=== PATIENT | male | born 1975 | race Hispanic/Latino ===

== ENCOUNTER 2020-03-08 00:47 | Emergency (ER) | payer SELFPAY ==
[~2020-03-08] VITALS: Ht 170.2 cm; Wt 87.0 kg
[2020-03-08] MEDS ORDERED: ATOR40TA75 PO (01:05)
[2020-03-08] MEDS ORDERED: METO1TAB32 PO (01:05)
[2020-03-08] MEDS ORDERED: LISI-542 PO (01:05)
[2020-03-08] MEDS ORDERED: PANT40TA29 PO (01:05)
[2020-03-08] MEDS ORDERED: WARF-23 PO (01:05)
[2020-03-08] MEDS ORDERED: CARV3.12 PO (01:05)
[2020-03-08] MEDS ORDERED: BUME1TAB3 PO (01:05)
[2020-03-08] MEDS ORDERED: MAGN200T10 PO (01:05)
[2020-03-08] MEDS ORDERED: GABAPENTIN 300 MG CAP PO ONE (02:15)
[2020-03-08 03:47] LABS: INR 1.29; PROTHROMBIN TIME 16.4 SECONDS (12.5-14.3)
--- NOTE | 2020-03-08 04:03 | REPVR ---
PROCEDURE INFORMATION: Exam: US Duplex Lower Extremity Veins, Bilateral Exam date and time: 03/08/2020 3:05 AM Age: 44 years old Clinical indication: Pain; Leg, upper; Bilateral; Additional info: B/l leg pain TECHNIQUE: Imaging protocol: Real-time duplex ultrasound of the extremities with 2-D scales scale, color Doppler flow and spectral waveform analysis with image documentation. Complete exam focused on the bilateral lower extremity veins. COMPARISON: No relevant prior studies available. FINDINGS: Limitations: Examination is limited by motion artifact. Patient could not shaking his legs. Right deep veins: Unremarkable. The common femoral, femoral, proximal profunda femoral and popliteal veins are patent without thrombus. Normal Doppler waveforms. Normal compressibility and/or augmentation response. Right superficial veins: Saphenofemoral junction is patent without thrombus. Left deep veins: Unremarkable. The common femoral, femoral, proximal profunda femoral and popliteal veins are patent without thrombus. Normal Doppler waveforms. Normal compressibility and/or augmentation response. Left superficial veins: Saphenofemoral junction is patent without thrombus. Soft tissues: Unremarkable. IMPRESSION: No evidence of deep vein thrombosis. Electronically signed by: Alisha Neely On 03/08/2020 04:03:41 AM
[2020-03-08] MEDS ORDERED: NEUR300C PO (04:24)
[2020-03-08 04:31] VITALS: BP 100/76
== END 2020-03-08 05:12 | disposition home or self-care (01) ==
LOC: M ED 00:47
DX: U07.1 COVID-19 (principal); R06.02 Shortness of breath; E11.40 Type 2 diabetes mellitus with diabetic neuropathy, unspecified; I25.2 Old myocardial infarction; I25.10 Atherosclerotic heart disease of native coronary artery without angina pectoris; I48.91 Unspecified atrial fibrillation; I11.9 Hypertensive heart disease without heart failure; Z79.899 Other long term (current) drug therapy

== ENCOUNTER 2020-03-16 18:28 | Observation (INO) | payer BC, OTHER ==
[~2020-03-16] VITALS: Ht 170.2 cm; Wt 101.8 kg
[~2020-03-16 18:28] MED LIST: ATOR40TA75 PO; BUME1TAB3 PO; CARV3.12 PO; LISI-898 PO; MAGN200T10 PO; METO1TAB32 PO; NEUR300C PO; PANT40TA29 PO; WARF-23 PO
[2020-03-16 19:34] LABS: BASO # 0.1 10^3/uL (0.0-0.2); BASO % 0.7 % (0.0-1.0); EOS # 0.2 10^3/uL (0.0-0.5); EOS % 2.3 % (0.0-3.0); HEMATOCRIT 32.9 % (42.0-52.0); HEMOGLOBIN 9.8 g/dl (13.5-17.5); LYMPH # 1.2 10^3/uL (1.5-5.0); LYMPH % 16.5 % (24.0-44.0); MEAN CORPUSCULAR HGB CONC 29.8 g/dl (32.0-36.5); MEAN CORPUSCULAR VOLUME 73.8 fl (80.0-96.0); MONO # 0.9 10^3/uL (0.0-0.8); MONO % 12.5 % (0.0-5.0); NEUTROPHILS # 4.8 10^3/uL (1.5-8.5); NEUTROPHILS % 67.7 % (36.0-66.0); PLATELET COUNT, AUTOMATED 353 10^3/uL (150-450); RED BLOOD COUNT 4.46 10^6/uL (4.30-6.10)
--- NOTE | 2020-03-16 19:47 | REPVR ---
PROCEDURE INFORMATION: Exam: US Duplex Lower Extremity Veins, Bilateral Exam date and time: 03/16/2020 7:42 PM Age: 44 years old Clinical indication: Edema, localized; Lower extremity, bilateral; Additional info: Edema R/O dvt TECHNIQUE: Imaging protocol: Real-time duplex ultrasound of the extremities with 2-D scales scale, color Doppler flow and spectral waveform analysis with image documentation. Complete exam focused on the bilateral lower extremity veins. COMPARISON: US Duplex, Ext LOWER veins, bilat 03/08/2020 2:42 AM FINDINGS: Right deep veins: Unremarkable. The common femoral, femoral, proximal profunda femoral and popliteal veins are patent without thrombus. Normal Doppler waveforms. Normal compressibility and/or augmentation response. Right superficial veins: Saphenofemoral junction is patent without thrombus. Left deep veins: Unremarkable. The common femoral, femoral, proximal profunda femoral and popliteal veins are patent without thrombus. Normal Doppler waveforms. Normal compressibility and/or augmentation response. Left superficial veins: Saphenofemoral junction is patent without thrombus. Soft tissues: Bilateral lower leg edema. IMPRESSION: Bilateral lower leg edema. No DVT. Electronically signed by: Sebastien Bond On 03/16/2020 19:47:20 PM
[2020-03-16 19:52] LABS: PROTHROMBIN TIME 50.1 SECONDS (12.5-14.3)
[2020-03-16 19:53] LABS: PARTIAL THROMBOPLASTIN TIME 54.9 SECONDS (24.2-38.5)
[2020-03-16 20:05] LABS: INR 5.34
--- NOTE | 2020-03-16 20:05 | REP ---
INDICATION: SOB COMPARISON: None. TECHNIQUE: PA/Lateral FINDINGS: No infiltrate is seen in either lung. On the lateral view, along the posterior aspect of the cardiac silhouette, is a nodular density measuring about 3 cm in diameter. Although this may represent superimposed vascular structures a nodule cannot be excluded. The heart is at the upper limits of normal in size. The mediastinal silhouette is otherwise unremarkable. There is mild elevation of the right christopher diaphragm. There are mild degenerative changes of the spine. IMPRESSION: On the lateral view, along the posterior aspect of the cardiac silhouette, a 3 cm nodular density could represent superimposed vascular structures. However a pulmonary nodule or adenopathy cannot be excluded. Recommend CT of chest with contrast. <Electronically signed by Chepe Ramirez > 03/16/202000
[2020-03-16 20:11] LABS: ALBUMIN 2.6 GM/DL (3.2-5.2); BILIRUBIN,DIRECT 1.2 MG/DL (0.0-0.2); BILIRUBIN,TOTAL 1.6 MG/DL (0.2-1.0); CALCIUM LEVEL 8.4 MG/DL (8.5-10.1); CK-MB VALUE MASS 2.3 NG/ML (<3.6); CREATININE FOR GFR 2.44 MG/DL (0.70-1.30); FREE T4 1.45 NG/DL (0.76-1.46); MB/CK RELATIVE INDEX 2.56 (< OR =4); POTASSIUM SERUM 5.2 MEQ/L (3.5-5.1); THYROID STIMULATING HORMONE 6.32 uIU/ML (0.358-3.740); TOTAL PROTEIN 7.1 GM/DL (6.4-8.2); TROPONIN I 0.02 NG/ML (< 0.10)
--- NOTE | 2020-03-16 20:34 | ECGEPIP ---
[facility] - ED Test Date: 2020-03-16 Pat Name: HERMILA LIVE Department: Room: - Gender: Male Independent Crop Consultant: mary : 1975 Requested By: MADDISON Godinez Order Number: [id number] Reading MD: Chaparro Leonard Measurements Intervals [place] Rate: 86 P: 53 MN: 158 QRS: 37 QRSD: 84 T: 155 QT: 384 QTc: 462 Interpretive Statements SINUS RHYTHM LOW QRS VOLTAGE IN EXTREMITY LEADS ANTEROSEPTAL MYOCARDIAL INFARCTION, PROBABLY OLD NO PRIORS FOR COMPARISON Electronically Signed on 03-16-2020 20:34:25 EST by Chaparro Leonard
[2020-03-16] MEDS ORDERED: GABA-282 PO (22:09)
[2020-03-16] MEDS ORDERED: MAGN400T3 PO (22:09)
[2020-03-17] MEDS ORDERED: GABAPENTIN 300 MG CAP PO ONE
[2020-03-17 00:58] LABS: HEMOGLOBIN A1c 8.2 %
[2020-03-17] MEDS ORDERED: DEXTROSE 50% 50 ML SYRINGE IV PRN (01:45)
[2020-03-17] MEDS ORDERED: GLUCOSE 4GM CHEW TABLET PO PRN (01:45)
[2020-03-17] MEDS ORDERED: GLUCAGON INJ 1MG VIAL SC PRN (01:45)
[2020-03-17] MEDS ORDERED: NS 1,000 ML IV SCH (02:00)
[2020-03-17] MEDS ORDERED: ACETAMINOPHEN TAB 650MG DOSE (2X325MG) PO PRN (02:15)
[2020-03-17 04:43] VITALS: BP 119/72
--- NOTE | 2020-03-17 04:51 | HPEPDOC ---
General Date of Admission Mar 16, 2020 at 18:29 Date of Service: Mar 17, 2020 Other Providers No local provider Attending Physician: Ronnie Cedillo MD Chief Complaint The patient is a 44-year-old male admitted with a reason for visit of Arf,Chf. Source: Patient Exam Limitations: Other (decreased medical literacy) History of Present Illness Mr. Pena is a 44-year-old man who moved to [place] from [place] about 3 weeks ago. He lives with his daughter and son-in-law on [address]. Unfortunately, he literally brought COVID with him as he was informed by [facility] authorities that a COVID test done on 02/21/20 was positive as he was traveling here. He has subsequently recovered from that. He was seen in our emergency department about a week ago and diagnosed with diabetic neuropathy. He was prescribed gabapentin for this. The gabapentin has helped with his neuropathic pain, but he is still having pain. He typically takes full-strength aspirin to treat his pain. A few days ago he saw a bottle of Advil in [facility] and thought he might try that for his pain as well. Roughly 12 hours before admission he took a dose of Advil. To his knowledge he's never taken this medication before. When he woke about 3 hours later his face and hands were swollen. As he and his family were trying to decide what to do he started to feel a lump in his throat and he decided to come to the emergency department for further evaluation and treatment. In the intervening time since he came to the emergency department the facial swelling and sense of a lump in his throat have essentially resolved. Home Medications Scheduled Atorvastatin Calcium (Atorvastatin Calcium) 40 Mg Tablet, 40 MG PO QHS, (Reported) Bumetanide (Bumetanide) 1 Mg Tablet, 1 MG PO TID, (Reported) Carvedilol (Carvedilol) 3.125 Mg Tablet, 3.125 MG PO BID, (Reported) Gabapentin (Gabapentin) 300 Mg Capsule, 300 MG PO TID, (Reported) Lisinopril (Lisinopril) 5 Mg Tablet, 5 MG PO DAILY, (Reported) Magnesium Oxide (Magnesium Oxide) 400 Mg Tablet, 400 MG PO DAILY, (Reported) Metoprolol Succinate (Metoprolol Succinate) 25 Mg Tab.er.24h, 25 MG PO DAILY, (Reported) Pantoprazole Sodium (Pantoprazole Sodium) 40 Mg Tablet.dr, 40 MG PO DAILY, (Reported) Warfarin Sodium (Warfarin Sodium) 5 Mg Tablet, 5 MG PO BID, (Reported) Allergies Coded Allergies: No Known Allergies (Unverified , 03/08/20) Past Medical History Medical History Coronary artery disease, status post IL (2019) Congestive heart failure, noted after IL Type 2 diabetes "My heart flickers and doesn't pump well" which I presume to be paroxysmal atrial fibrillation History of methamphetamine use, 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 His mother is alive at 61 years of age. She has type 2 diabetes with neuropathy, IL 2, congestive heart failure. He has a brother but doesn't know much about his history. He has 4 sons and 3 daughters all of whom are reported to have no known medical problems Social History * Smoker: quit less than 1 year (previous he smoked 1.5 packs per day 7 years) Alcohol: Denies Drugs: other (remote history of methamphetamine use) Recent Travel/Sick Contacts: Reports: Recent travel (he recently moved here from [place]) He lives in a house on [address] with his daughter. He must go up and down stairs between the bedroom and bathroom. His exercise is primarily going up and down the stairs which he thinks is making him stronger. A-FIB/CHADSVASC A-FIB History Current/History of A-Fib/PAF?: Yes Current PO Anticoag Therapy: Yes Review of Systems Constitutional: Reports: Weakness, Lethargy; Denies: Chills, Fever ENT: Reports: Other Symptoms (sense of a lump in his throat); Denies: Head Aches, Ear Pain Skin: Reports: Other (facial swelling) Pulmonary: Denies: Dyspnea, Cough, Pleuritic Chest Pain Cardiovascular: Denies: Chest Pain, Palpitations Gastrointestinal: Denies: Nausea, Vomiting, Abdominal Pain, Diarrhea, Constipation, Melena, Hematochezia Genitourinary: Denies: Dysuria, Hematuria Hematologic: Denies: Bruising, Bleeding Excessively Endocrine: Denies: Polydipsia, Polyphagia, Polyuria Neurological: Denies: Weakness, Numbness Psych: Reports: Mood Normal Physical Examination General Exam: Positive: Alert, Cooperative, No Acute Distress (laying in his ER stretcher when I entered the room) Eye Exam: Positive: PERRLA, Conjunctiva & lids normal, EOMI ENT Exam: Positive: Atraumatic, Mucous membr. moist/pink, Pharynx Normal, Tongue Midline; Negative: Pharyngeal Edema Neck Exam: Positive: Supple; Negative: Lymphadenopathy Chest Exam: Positive: Clear to auscultation, Normal air movement Heart Exam: Positive: Rate Normal, Regular Rhythm, Normal S1, Normal S2; Negative: Murmurs, Rubs Telemetry: Positive: No significant arrhythmia Abdomen Exam: Positive: Normal bowel sounds, Soft, Other (there is a large well-healing midline scar); Negative: Tenderness, Hepatospenomegaly Extremity Exam: Positive: Edema (trace pitting pretibial edema), Tenderness (he reports some tenderness on palpation over the right lower extremity); Negative: Cyanosis Neuro Exam: Positive: Normal Gait, Normal Speech, Normal Tone Psych Exam: Positive: Mental status NL, Mood NL, Oriented x 3 Vital Signs Vital Signs Date Time Temp Pulse Resp B/P (MAP) Pulse Ox O2 Delivery O2 Flow Rate FiO2 03/17/20 04:00 81 134/75 (94) 99 03/17/20 01:32 96.9 03/16/20 22:15 17 Room Air Laboratory Data Labs 24H Laboratory Tests 2 03/16/20 19:21: Estimated Mean Plasma Glucose 189H, Hemoglobin A1c 8.2 03/16/20 19:22: Immature Granulocyte % (Auto) 0.3, Neutrophils (%) (Auto) 67.7H, Lymphocytes (%) (Auto) 16.5L, Monocytes (%) (Auto) 12.5H, Eosinophils (%) (Auto) 2.3, Basophils (%) (Auto) 0.7, Neutrophils # (Auto) 4.8, Lymphocytes # (Auto) 1.2L, Monocytes # (Auto) 0.9H, Eosinophils # (Auto) 0.2, Basophils # (Auto) 0.1, Nucleated Red Blood Cells % (auto) 0.0, Prothrombin Time 50.1H, Prothromb Time International Ratio 5.34*H, Activated Partial Thromboplast Time 54.9H, Anion Gap 10, Glomerular Filtration Rate 31.0L, Calcium Level 8.4L, Magnesium Level 2.0, Total Bilirubin 1.6H, Direct Bilirubin 1.2H, Aspartate Amino Transf (AST/SGOT) 23, Alanine Aminotransferase (ALT/SGPT) 20, Alkaline Phosphatase 322H, Total Creatine Kinase 90, Creatine Kinase MB 2.3, Creatine Kinase MB Relative Index 2.56, Troponin I 0.02, XF-Odj-D-Type Natriuretic Peptide 6946H, Total Protein 7.1, Albumin 2.6L, Albumin/Globulin Ratio 0.6, Thyroid Stimulating Hormone (TSH) 6.320H, Free Thyroxine 1.45 03/16/20 23:53: Bedside Glucose (Misc Panel) 148H CBC/BMP Laboratory Tests 03/16/20 19:22 Problems (1) Acute renal failure (ARF) Status: Acute Problem Specific Plan: Repeat Labs Problem Text: I think that the combination of Bumex plus the aspirin he typically takes for pain plus Advil was just too much for his kidneys. I don't have a baseline for him, but I doubt his creatinine is usually 2.4. Managing this issue is somewhat complicated because he does have a history of congestive heart failure as well. Have to decide whether I should diurese him to try to increase renal flow by allowing the heart to be more efficient pump, or add fl uids to help the kidney managing insult from nephrotoxic medications. In the end, I decided to do the latter as it seems that the new medications are the thing that is tipped him over the edge, not slowly heading into heart failure. We need to monitor his I's and O's very carefully because I may and made the wrong call, and he needs to be diuresed more aggressively. I'm not certain as to whether we should list Advil as an allergy for him or not. Certainly allergies to ibuprofen do exist and angioedema would be a common manifestation of that allergic reaction. (2) Congestive heart failure (CHF) Status: Chronic Problem Specific Plan: Monitor Clinically Problem Text: I don't know what type of heart failure he has as we don't have any previous records nor an echocardiogram. I ordered an echocardiogram to further clarify this. While he does have an elevated BNP here in the emergency department, I think that the factor driving his admission is actually acute renal failure not congestive heart failure. Because of this I have ordered gentle IV hydration. We will need to monitor his I's and O's very carefully. (3) Elevated bilirubin Problem Text: I'm not certain why he has an elevated bilirubin and significantly elevated alkaline phosphatase without other evidence of transaminitis. This could be as simple as a congenital issue. It could be related to an acute hepatitis from medications or even an acute or chronic infectious hepatitis. At this point in time, I think monitoring his labs to see whether these values improve without additional doses of aspirin or ibuprofen is reasonable. If they do not improve, further evaluation should be pursued. (4) Elevated INR Problem Text: He chronically takes warfarin. It's not entirely clear to me why he is on this, although I think it's for paroxysmal atrial fibrillation. Unfortunately he does not endorse having atrial fibrillation but does say that his "heart flutters and doesn't pump well". He is not in atrial fibrillation in the ER today. Regardless his INR is quite elevated at this point in time and his Coumadin should be held. (5) Anemia Problem Specific Plan: Monitor Clinically, Repeat Labs Problem Text: He is anemic with a hemoglobin of 9.8. His only been a little over a month since he had a ruptured gastric ulcer which had to be urgently operated on. Some the anemia may be related to his recovery from this condition and procedure. It's also possible that he is losing blood because he takes a combination of warfarin and aspirin which would not generally be recommended. I don't think he's been put on aspirin for prophylaxis; I think he takes it on his own for pain control. Regardless both of these medications should be held at present and we will check his stool for occult blood. He denies noting any melena or hematochezia. (6) Paroxysmal atrial fibrillation Problem Text: I'm not certain that he has paroxysmal atrial fibrillation but given the history he explains to me this is a condition that makes the most sense. We'll admit him on telemetry to see whether we note any atrial fibrillation. I did notice that he was on a combination of carvedilol and metoprolol. I do not understand why he is on both of these medications and suspect that one is an error. I held the metoprolol here in the hospital. If his heart rate or blood pressure become elevated we should either increase his carvedilol or consider adding the metoprolol back in. (7) DM type 2 (diabetes mellitus, type 2) Status: Chronic Problem Text: He reports he is diabetic, but doesn't have any diabetic medications as a part of his regimen at present. I did ask them to check a hemog lobin A1c in the emergency department and this confirms that his diabetic and that he is not well controlled. At present we will start Accu-Cheks before meals and at bedtime and use an insulin sliding scale. We may want to start converting some of the sliding scale insulin to basal insulin prior to discharge so he has some diabetic regimen to go home on. Alternatively, we could leave it how it is and that his new PCP decide what he wants to start him on. (8) CAD (coronary artery disease), [place] coronary artery Status: Chronic Problem Text: He has a history of coronary artery disease and reports that he had an IL less than 1 year ago. He denies having any stents in place. He is not having any chest pain at present. We'll continue current regimen, monitor. (9) H/O gastric ulcer Problem Text: He reportedly had rupture of a gastric ulcer that required emergent surgery less than 2 months ago. He seems to be healing well from this. We will need to reinforce to him that taking aspirin or Advil as not a good idea if you have a gastric ulcer. Taking a combination of aspirin and Advil is a very bad idea. Plan / VTE VTE Prophylaxis Ordered?: Yes VTE Exclusion Pharmacological: Other (he takes warfarin, but this is currently held because of the supratherapeutic INR) Plan IVF: Initiate Advanced Directives: Health Care Proxy (HCP) (he identifies his daughter Venice Hernandez as his alternate decision maker if he was unable to make his own medical decisions. He wishes to be FULL code.) Ronnie Cedillo MD Mar 17, 2020 04:51
[2020-03-17 06:35] LABS: HEMATOCRIT 35.2 % (42.0-52.0); HEMOGLOBIN 10.4 g/dl (13.5-17.5); MEAN CORPUSCULAR HGB CONC 29.5 g/dl (32.0-36.5); MEAN CORPUSCULAR VOLUME 74.4 fl (80.0-96.0); PLATELET COUNT, AUTOMATED 381 10^3/uL (150-450); RED BLOOD COUNT 4.73 10^6/uL (4.30-6.10); WHITE BLOOD COUNT 7.5 10^3/uL (4.0-10.0)
[2020-03-17 07:03] LABS: ALBUMIN 2.6 GM/DL (3.2-5.2); BILIRUBIN,TOTAL 1.6 MG/DL (0.2-1.0); CALCIUM LEVEL 8.9 MG/DL (8.5-10.1); CREATININE FOR GFR 2.45 MG/DL (0.70-1.30); GLOMERULAR FILTRATION RATE 30.9 (>60); POTASSIUM SERUM 5.2 MEQ/L (3.5-5.1); TOTAL PROTEIN 7.3 GM/DL (6.4-8.2)
[2020-03-17] MEDS: HumaLOG INSULIN (NovoLOG) PER UNIT SC SCH ×2 (08:28→12:14)
[2020-03-17 08:29] VITALS: BP 122/83
[2020-03-17] MEDS ORDERED: PANTOPRAZOLE 40MG TAB (PROTONIX) PO SCH (09:00)
[2020-03-17] MEDS ORDERED: CARVedilol 3.125 MG TAB PO SCH (09:00)
[2020-03-17] MEDS ORDERED: GABAPENTIN 300 MG CAP PO SCH (09:00)
[2020-03-17] MEDS ORDERED: lisinopriL 5 MG TAB PO SCH (09:00)
[2020-03-17] MEDS ORDERED: MAGNESIUM OXIDE 400MG TAB (MAG-OX) PO SCH (09:00)
[2020-03-17] MEDS ORDERED: **NOTE PATIENT COMMENT** MISC XX SCH (10:15)
--- NOTE | 2020-03-17 12:11 | IPN ---
PROGRESS NOTE DATE: 03/17/2020 Juma is [facility]. I have reviewed his history and physical. We do not have access to any of his outpatient records, which would be very beneficial. He was admitted with some abnormal renal function tests as well as congestive heart failure. We do not know his baseline labs. We are assuming he has acute kidney injury superimposed on some chronic kidney disease, but as far as we know he is at his baseline renal function. We also do not know what his cardiac function is like. His liver functions are mildly affected. We do not know what those are at baseline either. His INR is quite prolonged, so his warfarin is on hold. He has quite a bit of neuropathic pain in his legs. Nursing staff called me to see him for this. When I went to the room, he was sound asleep and was sleeping so soundly he barely woke up for my exam. PHYSICAL EXAMINATION: Blood pressure 122/83, pulse 90, respirations 18, 98% oxygen saturation. He is alert, conversant. No distress. Lungs clear. Heart regular rate and rhythm. Abdomen obese, nontender. No masses. Trace peripheral edema. Decreased sensation to light touch on both feet. Pulse decreased in both feet but palpable. IMPRESSION: 1. Severe neuropathic pain in his legs. He is on gabapentin. He has multiple causes for this, including kidney disease and diabetes. Hemoglobin A1c is 8.2%, showing less than optimal control for his diabetes for a person who is only 44. Medications choice will depend on where his renal function stabilizes. Currently he is on sliding scale with coverage. 2. Diabetes, type 2, with sliding scale coverage. If his renal function improves to the point where he would tolerate other medicines. Metformin and probably a flozin would be the most beneficial. 3. Abnormal kidney function. Question acute kidney injury superimposed on chronic kidney disease. Again, we do not know his baseline. He is cautiously being hydrated. Repeat labs have been ordered for the morning. I ordered a renal ultrasound. 4. Congestive heart failure. He is being cautiously hydrated. Echocardiogram has been ordered. Diuretics are on hold. 5. Atrial fibrillation. His rate is controlled. His INR is excessive, and his warfarin is on hold. Daily INRs have been ordered. 6. Recent severe upper gastrointestinal (GI) bleed from a hemorrhagic gastric ulcer. Daily complete blood counts (CBCs) have been ordered. Continue proton pump inhibitor (PPI) therapy. Avoid nonsteroidal anti-inflammatory drugs (NSAIDs). 7. Coronary artery disease, status post myocardial infarction in 2020. Continue beta jun therapy and statin therapy with atorvastatin 40 mg daily.
[2020-03-17] MEDS ORDERED: HumaLOG INSULIN (NovoLOG) PER UNIT SC SCH (21:00)
[2020-03-17] MEDS ORDERED: ATORVASTATIN 20 MG TAB PO SCH (21:00)
--- NOTE | 2020-03-18 09:13 | DSES ---
DISCHARGE SUMMARY DATE OF ADMISSION: 03/16/2020 DATE OF DISCHARGE: 03/17/2020 The patient left against medical advice. PRINCIPAL DIAGNOSIS: Severe neuropathic pain in legs. SECONDARY DIAGNOSES: 1. Type 2 diabetes poorly controlled. 2. Acute versus chronic kidney disease. 3. Congestive heart failure - ejection fraction not quantitated. 4. Atrial fibrillation. 5. Excessive anticoagulation. 6. History of recent upper gastrointestinal bleed. 7. Coronary artery disease. BRIEF HISTORY: Juma Pena was admitted to [address] [place] [address]. Details from current medical record. He signed out against medical advice. Unfortunately none of the tests I ordered to workup the acute kidney versus chronic kidney disease, abnormal liver function tests or congestive heart failure (echocardiogram) were able to be performed before he left. He does have an appointment to go to the [facility] on 03/20. I have looked through records and he has seen Dr. Anish Baker DO. I called Dr. Baker and we discussed the case. He is aware of the patient's medical conditions, the numerous unanswered questions and the diagnostic testing that unfortunately was not able to be performed. The patient left against medical advice. DISCHARGE MEDICATIONS: Unchanged from admission. He was instructed to not take his Lisinopril or his Warfarin until seen in the office Thursday. His INR can be rechecked in the office on Thursday. Can recheck to see if his renal function has improved to the point where he could restart Ritchie inhibitor therapy. The patient was made aware of the risks of , disability, worsening pain and decreased quality of life for against leaving against medical advice and still undertook that choice.
[2020-03-19 10:45] LABS: FOLATE 11.1 NG/ML
== END 2020-03-17 14:35 | disposition left against medical advice (07) ==
LOC: M ED 18:28 → M ED INP 18:29 → M MSPAV 03-17 04:40
PROVIDERS: ADMIT Family Medicine; ATTEND Family Medicine
DX: N17.9 Acute kidney failure, unspecified (principal); Z53.21 Procedure and treatment not carried out due to patient leaving prior to being seen by health care provider; E11.40 Type 2 diabetes mellitus with diabetic neuropathy, unspecified; I50.9 Heart failure, unspecified; N18.9 Chronic kidney disease, unspecified; I48.91 Unspecified atrial fibrillation; I25.2 Old myocardial infarction; I25.10 Atherosclerotic heart disease of native coronary artery without angina pectoris; Z79.899 Other long term (current) drug therapy; R79.1 Abnormal coagulation profile; Z79.01 Long term (current) use of anticoagulants; Z87.891 Personal history of nicotine dependence; D64.9 Anemia, unspecified

== ENCOUNTER → 2020-03-21 | Outpatient (CLI) | payer BC, OTHER ==
[~2020-03-21] MED LIST changes: +ALDA25TA2 PO; +CEFT1INJ4 IV; +FURO80VL IV; +GABA-282 PO; +MAGN400T3 PO
[2020-03-21 12:02] LABS: BASO % 0.6 % (0.0-1.0); EOS # 0.2 10^3/uL (0.0-0.5); EOS % 3.2 % (0.0-3.0); HEMATOCRIT 33.8 % (42.0-52.0); HEMOGLOBIN 9.9 g/dl (13.5-17.5); LYMPH # 1.2 10^3/uL (1.5-5.0); LYMPH % 18.7 % (24.0-44.0); MEAN CORPUSCULAR HEMOGLOBIN 22.1 pg (27.0-33.0); MEAN CORPUSCULAR HGB CONC 29.3 g/dl (32.0-36.5); MEAN CORPUSCULAR VOLUME 75.6 fl (80.0-96.0); MONO % 16.2 % (0.0-5.0); NEUTROPHILS # 3.8 10^3/uL (1.5-8.5); PLATELET COUNT, AUTOMATED 296 10^3/uL (150-450); RED BLOOD COUNT 4.47 10^6/uL (4.30-6.10)
[2020-03-21 12:02] LABS: APPEARANCE, URINE CLEAR (CLEAR); BACTERIA, URINE AUTO NEGATIVE (NEGATIVE); BILIRUBIN, URINE AUTO NEGATIVE (NEGATIVE); BLOOD, URINE BLOOD NEGATIVE (NEGATIVE); COLOR, URINE YELLOW (YELLOW); GLUCOSE, URINE (UA) AUTO NEGATIVE (NEGATIVE); KETONE, URINE AUTO NEGATIVE (NEGATIVE); LEUKOCYTE ESTERASE, URINE AUTO NEGATIVE (NEGATIVE); NITRITE, URINE AUTO NEGATIVE (NEGATIVE); PROTEIN, URINE AUTO NEGATIVE (NEGATIVE); RBC, URINE AUTO 0 /HPF (0-3); SPECIFIC GRAVITY URINE AUTO 1.009 (1.002-1.035); SQUAMOUS EPITHELIAL CELL UR AU 0 /HPF (0-6); UROBILINOGEN, URINE AUTO 0.2 mg/dL (0.0-2.0); WBC, URINE AUTO 0 /HPF (0-3)
[2020-03-21 12:06] LABS: WHITE BLOOD COUNT 6.2 10^3/uL (4.0-10.0)
[2020-03-21 12:13] LABS: INR 4.99; PROTHROMBIN TIME 47.5 SECONDS (12.5-14.3)
[2020-03-21 12:58] LABS: CREATININE, URINE 24.7 MG/DL; MALB URINE SIEMENS 52.8 MG/L; MAU/CREAT RATIO 213.7 MCG/MG (0.0-30.0)
[2020-03-21 13:14] LABS: ALBUMIN 2.6 GM/DL (3.2-5.2); ALT/SGPT 18 U/L (12-78); BILIRUBIN,TOTAL 1.6 MG/DL (0.2-1.0); BLOOD UREA NITROGEN 29 MG/DL (7-18); CALCIUM LEVEL 8.7 MG/DL (8.5-10.1); CARBON DIOXIDE LEVEL 30 MEQ/L (21-32); CHLORIDE LEVEL 98 MEQ/L (98-107); CREATININE FOR GFR 1.07 MG/DL (0.70-1.30); GLOMERULAR FILTRATION RATE > 60.0 (>60); GLUCOSE, FASTING 261 MG/DL (70-100); NT-PRO BNP 7549 PG/ML (<125); POTASSIUM SERUM 4.3 MEQ/L (3.5-5.1); SODIUM LEVEL 136 MEQ/L (136-145)
[2020-03-22 11:49] LABS: ALBUMIN 2.88 GM/DL (3.29-5.55); ALBUMIN % 41.1 % (55.8-66.1); ALPHA-1-GLOBULIN % 6.6 % (2.9-4.9); ALPHA-1-GLOBULINS 0.46 GM/DL (0.17-0.41); ALPHA-2-GLOBULINS 0.97 GM/DL (0.42-0.99); ALPHA-2-GLOBULINS % 13.9 % (7.1-11.8); BETA-1-GLOBULINS 0.52 GM/DL (0.28-0.60); BETA-1-GLOBULINS % 7.4 % (4.7-7.2); BETA-2-GLOBULINS 0.46 GM/DL (0.19-0.55); BETA-2-GLOBULINS % 6.6 % (3.2-6.5); GAMMA GLOBULIN % 24.4 % (11.1-18.8); GAMMA GLOBULINS 1.71 GM/DL (0.65-1.58)
--- NOTE | 2020-03-23 13:29 | ECHO ---
DATE OF PROCEDURE: 03/21/2020 Age: 44 Gender: Male Height: 67 inches Weight: 230 pounds Body Surface Area: 2.14 m2 PATIENT LOCATION: Outpatient. REFERRING PHYSICIAN: Anish Baker DO. INDICATION: Heart failure. MEASUREMENTS: 2D Measurements: RV 4.8 cm. LV 6.8 cm Septum 1.0 cm Posterior wall 1.0 cm Aortic Root 3.0 cm LA 5.0 cm LVEF 10-20% Doppler Measurements: AV 0.87 m/s LVOT 0.72 m/s MV-E 51, A 106, EA ratio 0.5 E prime medial 3.3, A prime medial 3.4, E prime lateral 7.4 Average E/E prime ratio 9.5/PCWP 13.7 mmHg PV 0.52 m/s Pulmonary artery acceleration time 87 msec RVSP 57 mmHg IVC 3.1 cm COMMENTS: Normal sinus rhythm without intraventricular conduction disturbance. M-mode and 2-dimensional echocardiography was performed with pulse, continuous wave, color flow, and tissue Doppler studies. Prominently dilated left ventricle with normal wall thickness and severe global hypokinesis with virtual akinesis of the apex. Prominently dilated left atrium with current grade 1 LV diastolic dysfunction and normal estimated mean left atrial pressure. Prominently dilated right heart chambers with right ventricular free wall hypokinesis and Doppler evidence of at least moderately severe pulmonary hypertension. Prominently dilated IVC with virtually absent respiratory collapse in keeping with markedly elevated central venous pressure/right heart failure. Normal aortic dimensions. Normal appearing aortic valve structure with adequate cusp separation but premature cusp closure in keeping with reduced forward stroke volume. Trace insufficiency. Normal appearing mitral valvular apparatus with low flow appearance to leaflet excursion but no posterior systolic buckling. At least mild to moderate mitral insufficiency. Normal appearing tricuspid valve with at least moderate to moderately severe tricuspid insufficiency. No apparent intracardiac mass or pericardial effusion. MTDD
== END ==
LOC: M CARPUL 11:00
PROVIDERS: ATTEND Family Medicine
DX: I50.9 Heart failure, unspecified (principal); R79.89 Other specified abnormal findings of blood chemistry; G62.9 Polyneuropathy, unspecified; R79.1 Abnormal coagulation profile

== ENCOUNTER 2020-03-26 23:54 | Inpatient (IN) | payer BC ==
[~2020-03-26] VITALS: Ht 170.2 cm; Wt 105.8 kg
[~2020-03-26 23:54] MED LIST changes: -ALDA25TA2 PO; -CEFT1INJ4 IV; -FURO80VL IV
--- OUTSIDE RECORDS SUMMARY | 2020-03-27 00:03 | CCD ---
Author Author [facility] Organization [facility] Address Unknown Phone Unavailable Support Name Relationship Address Phone ELE LIVE Next Of Kin [address] [place] [place] [address] UE Next Of Kin Unknown Unavailable E[place] [address] ELE LIVE ECON [address] [facility] [place] [address] Unavailable Re-disclosure Warning The records that you are about to access may contain information from federally-assisted alcohol or drug abuse programs. If such information is present, then the following federally mandated warning applies: This information has been disclosed to you from records protected by federal confidentiality rules (42 CFR part 2). The federal rules prohibit you from making any further disclosure of this information unless further disclosure is expressly permitted by the written consent of the person to whom it pertains or as otherwise permitted by 42 CFR part 2. A general authorization for the release of medical or other information is NOT sufficient for this purpose. The Federal rules restrict any use of the information to criminally investigate or prosecute any alcohol or drug abuse patient.The records that you are about to access may contain highly sensitive health information, the redisclosure of which is protected by Article 27-F of the [place] Public Health law. If you continue you may have access to information: Regarding HIV / AIDS; Provided by facilities licensed or operated by the [place] [facility] Office of Mental Health; or Provided by the [facility] Office for People With Developmental Disabilities. If such information is present, then the following [facility] mandated warning applies: This information has been disclosed to you from confidential records which are protected by state law. State law prohibits you from making any further disclosure of this information without the specific written consent of the person to whom it pertains, or as otherwise permitted by law. Any unauthorized further disclosure in violation of state law may result in a fine or custodial sentence or both. A general authorization for the release of medical or other information is NOT sufficient authorization for further disc losure. Encounters Encounter Providers Location Date Indications Data Source(s ) Unknown [address] [facility], [facility] [address] 03/21/2020 12:00:00 AM EST eCW1 ([facility], [facility]) Medications Medication Brand Name Start Date Product Form Dose Route Admi nistrative Instructions Pharmacy Instructions Status Indications Reaction Description Data Source(s) Glucometer UNK 03/20/2020 12:00:00 AM EST active Glucometer eCW1 ([facility]) Blood Glucose Test - Blood Glucose Test - 03/20/2020 12:00:00 AM EST active Blood Glucose Test - eCW1 ([facility]) Lancets - Lancets - 03/20/2020 12:00:00 AM EST act dion Lancets - eCW1 ([facility]) Insurance Providers Payer name Policy type / Coverage type Policy ID Covered libertarian ID Covered libertarian's relationship to mcghee Policy Mcghee Plan Information BCBS [facility] 290/790 [id number] SP [id number] [employer] BC-BS PPO 306 [id number] SP [id number] [facility] 290/790 [id number] SP [id number] BCBS [facility] 290/790 [id number] SP [id number] SELF PAY ONLY [id number] SP [id number] Problems, Conditions, and Diagnoses Code Display Name Description Problem Type Effective Dates Data Source(s) E11.65 465270373 Poorly controlled diabetes mellitus Probl em 03/20/2020 12:00:00 AM EST eCW1 ([facility]) G62.9 49847942 Peripheral polyneuropathy Problem 03/20/2020 12:00:00 AM EST eCW1 ([facility]) I50.9 39368850 Congestive heart melissa lure, unspecified HF chronicity, unspecified heart failure type Problem 03/20/2020 12:00:00 AM EST eCW1 ([facility]) I48.0 029016160 Paroxysmal atrial fibrillation Problem 03/20/2020 12:00:00 AM EST eCW1 ([facility]) G47.00 091054602 Insomnia, unspecified type Problem 12:00:00 AM EST eCW1 ([facility]) Social History Code Duration Value Status Description Data Source(s ) Smoking 03/20/2020 12:00:00 AM EST Never Smoker completed Never S moker eCW1 ([facility]) Patient Treatment Plan of Care Planned Activity Planned Date Details Description Data Source (s) Lancets - 03/20/2020 12:00:00 AM EST e CW1 ([facility]) Blood Glucose Test - 03/20/2020 12:00:00 AM EST eCW1 ([facility]) Glucometer 03/20/2020 12:00:00 AM EST e CW1 ([facility])
--- OUTSIDE RECORDS SUMMARY | 2020-03-27 00:03 | CCD ---
Author [facility] Organization [facility] Address Unknown Phone Unavailable Care Team Providers Care Space Control Agent Name Role Phone Anish Baker Unavailable PROBLEMS Type Condition ICD9-CM Code QKU07-DG Code Onset Dates Condition S tatus W/U Status Risk SNOMED Code Notes Problem Insomnia, unspecified type G47.00 Active confirmed 740729880 Problem Paroxysmal atrial fibrillation I48.0 Active confir med 272513923 Problem Congestive heart failure, un specified HF chronicity, unspecified heart failure type I50.9 Active confirmed 47462066 Problem Peripheral polyneuropathy G62.9 Active confirmed 24032737 Problem Poorly controlled diabetes mellitus E11.65 Acti ve confirmed [id number] ALLERGIES No Known Allergies ENCOUNTERS from 1975 to 2020-03-22 Encounter Location Date Provider Diagnosis [facility] [address] [place] [address] Mar, Anish Baker IMMUNIZATIONS No Information SOCIAL HISTORY Tobacco Use: Social History Observation Description Date Details (start date - stop date) Never Smoker Sex Assigned At : Social History Observation Description Sex Assigned At Unknown Education: Question Answer Notes Level of Education: High School Language: Question Answer Notes Languages spoken: Guamanian Anabaptist: Question Answer Notes Anabaptist 33 None Alcohol Screening: Question Answer Notes Did you have a drink containing alcohol in the past year? No Points 0 Interpretation Negative Tobacco Use: Question Answer Notes Are you a: never smoker REASON FOR REFERRAL No Information VITAL SIGNS No information MEDICATIONS Medication SIG (Take, Route, Frequency, Duration) Notes Start Da te End Date Status Glucometer as directed Daily for 999 days Mar, Active Metoprolol Succinate 25 MG 1 capsule Orally Once a day for 30 day(s) Active Warfarin Sodium 5 MG 1 tablet Orally bid Active Gabapentin Active Magnesium Oxide 400 MG 1 tablet as needed Orally Once a day for 30 da y(s) Not-Taking Atorvastatin Calcium 40 MG 1 tablet Orally Once a day for 30 day(s) Active Pantoprazole Sodium 40 MG 1 tablet Orally Once a day for 30 day(s) Active Blood Glucose Test - as directed In Vitro bid for 90 days Mar, Active Lisinopril 5 MG 1 tablet Orally Once a day for 30 day(s) Active Lancets - as directed bid for 90 days Mar, Active Bumetanide 1 MG as directed Orally A ctive Carvedilol 3.125 MG 1 tablet with food Orally Twice a day for 30 day( s) Active PROCEDURES No Information RESULTS No Results REASON FOR VISIT inr MEDICAL (GENERAL) HISTORY Type Description Date Medical History type 2 DM, poorly controlled Medical History Kidney disease Medical History CHF Medical History Atrial fibrilation Medical History History of upper GI bleed Medical History Coronary artery disease, status post ND, no stents 2019 Medical History Peripheral Neuropathy Surgical History stomach ulcer ruptured, Jan 2020 Surgical History heart catherization 2019 Hospitalization History [facility] face swelling Goals Section No Information Health Concerns No Information MEDICAL EQUIPMENT No Information MENTAL STATUS No Information FUNCTIONAL STATUS No Information ASSESSMENTS No Information PLAN OF TREATMENT Medication Medication Name Sig Start Date Stop Date Glucometer as directed Daily for 999 days Mar, Lancets - as directed bid for 90 days Mar, Blood Glucose Test - as directed In Vitro bid for 90 days Mar Next Appt Details Provider Name:Anish Baker, 2020-03-27 10:00:00 AM, [address] [place], [address], Insurance Providers Payer Name Payer Address Payer Phone Insured Name Patient Relati onship to Insured Coverage Start Date Coverage End Date [facility] BCBS PPO [id number] [address] HERMILA LIVE self
--- NOTE | 2020-03-27 01:31 | REPVR ---
PROCEDURE INFORMATION: Exam: US Scrotum and US Duplex Artery and Vein, Scrotum, Complete Exam date and time: 03/27/2020 1:16 AM Age: 44 years old Clinical indication: Edema; Scrotum pain; Additional info: Swollen testicles TECHNIQUE: Imaging protocol: Real-time ultrasound of the scrotum. Real-time duplex ultrasound scan of the arterial and venous flow of the scrotum with B-mode, color Doppler flow and spectral waveform analysis. Complete exam. Duplex images required to evaluate vascular conditions. COMPARISON: No relevant prior studies available. FINDINGS: Right testicle: 4.7 x 2.7 x 2.6 cm. Normal waveforms. Scattered microcalcifications in the right testicle too scant to meet criteria for microlithiasis. Left testicle: 4.3 x 2.6 x 2.4 cm. Normal waveforms. Scattered microcalcifications in the left testicle too scant to meet criteria for microlithiasis. Epididymides: Normal. Scrotum: Scrotal edema. Trace right and small left hydroceles. IMPRESSION: No evidence of testicular torsion bilaterally. Marked scrotal wall edema. Trace right and small left hydroceles. Electronically signed by: Rigo Jordan On 03/27/2020 01:31:18 AM
[2020-03-27] MEDS ORDERED: FUROSEMIDE 40MG/4ML VIAL (J1940) IV ONE (01:45)
[2020-03-27 02:48] LABS: BASO # 0.1 10^3/uL (0.0-0.2); BASO % 1.1 % (0.0-1.0); EOS # 0.2 10^3/uL (0.0-0.5); EOS % 3.2 % (0.0-3.0); HEMATOCRIT 32.2 % (42.0-52.0); HEMOGLOBIN 9.5 g/dl (13.5-17.5); LYMPH # 1.4 10^3/uL (1.5-5.0); LYMPH % 19.3 % (24.0-44.0); MEAN CORPUSCULAR HEMOGLOBIN 22.3 pg (27.0-33.0); MEAN CORPUSCULAR HGB CONC 29.5 g/dl (32.0-36.5); MEAN CORPUSCULAR VOLUME 75.6 fl (80.0-96.0); MONO % 14.4 % (0.0-8.0); NEUTROPHILS # 4.4 10^3/uL (1.5-8.5); NEUTROPHILS % 61.7 % (36.0-66.0); PLATELET COUNT, AUTOMATED 343 10^3/uL (150-450); RED BLOOD COUNT 4.26 10^6/uL (4.30-6.10); WHITE BLOOD COUNT 7.1 10^3/uL (4.0-10.0)
[2020-03-27 03:21] LABS: ALBUMIN 2.5 GM/DL (3.2-5.2); ALT/SGPT 19 U/L (12-78); BILIRUBIN,DIRECT 1.2 MG/DL (0.0-0.2); BILIRUBIN,TOTAL 2.4 MG/DL (0.2-1.0); BLOOD UREA NITROGEN 20 MG/DL (7-18); CALCIUM LEVEL 8.1 MG/DL (8.5-10.1); CARBON DIOXIDE LEVEL 28 MEQ/L (21-32); CHLORIDE LEVEL 94 MEQ/L (98-107); CK-MB VALUE MASS 1.1 NG/ML (<3.6); CPK CREATINE PHOSPHOKINASE 88 U/L (39-308); CREATININE FOR GFR 0.94 MG/DL (0.70-1.30); GLOMERULAR FILTRATION RATE > 60.0 (>60); GLUCOSE, FASTING 236 MG/DL (70-100); LIPASE 227 U/L (73-393); MB/CK RELATIVE INDEX 1.25 (< OR =4); POTASSIUM SERUM 4.4 MEQ/L (3.5-5.1); SODIUM LEVEL 132 MEQ/L (136-145); TOTAL PROTEIN 7.4 GM/DL (6.4-8.2); TROPONIN I < 0.02 NG/ML (< 0.10)
[2020-03-27 03:27] LABS: RSV AMPLIFICATION NEGATIVE (NEGATIVE)
--- OUTSIDE RECORDS SUMMARY | 2020-03-27 03:46 | CCD ---
Author Author [facility] Organization [facility] Address Unknown Phone Unavailable Support Name Relationship Address Phone ELE [place] Next [place] [address] [place] [address] UE Next Of Kin Unknown Unavailable ELE WALTERS Next Of Kin [address] [place] [address] [place] [address] [place] [address] Unavailable Re-disclosure Warning The records that you [...] is protected by Article 27-F of the [facility] Public Health law. If you continue you may have access to information: Regarding HIV / AIDS; Provided by facilities licensed or operated by the [facility] Office of Mental Health; or Provided by the [facility] Office for People With Developmental Disabilities. If such information is present, then the following [facility] mandated warning applies: This information has been [...] law may result in a fine or shelter sentence or both. A general authorization for the release of medical or other information is NOT sufficient authorization for further disc losure. Encounters Encounter Providers Location Date Indications Data Source(s ) Unknown [address] [facility], [facility] [address] 03/21/2020 12:00:00 AM EST eCW1 ([facility]) Medications Medication Brand Name Start Date Product Form Dose Route Admi nistrative Instructions Pharmacy Instructions Status Indications Reaction Description Data Source(s) Glucometer UNK 03/20/2020 12:00:00 AM EST active Glucometer eCW1 ([facility]) Blood Glucose Test - Blood Glucose Test - 03/20/2020 12:00:00 AM EST active Blood Glucose Test - eCW1 ([facility]) Lancets - Lancets - 03/20/2020 12:00:00 AM EST act dion Lancets - eCW1 ([facility]) Insurance Providers Payer name Policy type / Coverage type Policy ID Covered green party ID Covered green party's relationship to mcghee Policy Mcghee Plan Information [facility] 290/790 [id number] SP [id number] [employer] BC-BS PPO 306 [id number] SP [id number] [facility] 290/790 [id number] SP [id number] BCBS [facility] 290/790 [id number] SP [id number] SELF PAY ONLY [id number] SP [id number] Problems, Conditions, and Diagnoses Code Display Name Description Problem Type Effective Dates Data Source(s) E11.65 [id number] Poorly controlled diabetes mellitus Probl em 03/20/2020 12:00:00 AM EST eCW1 ([facility]) G62.9 52195675 Peripheral polyneuropathy Problem 03/20/2020 12:00:00 AM EST eCW1 ([facility]) I50.9 43096785 Congestive heart melissa lure, unspecified HF chronicity, unspecified heart failure type Problem 03/20/2020 12:00:00 AM EST eCW1 ([facility]) I48.0 844225042 Paroxysmal atrial fibrillation Problem 03/20/2020 12:00:00 AM EST eCW1 ([facility]) G47.00 692660690 Insomnia, unspecified type Problem 12:00:00 AM EST eCW1 ([facility]) Social History Code Duration Value Status Description Data Source(s ) Smoking 03/20/2020 12:00:00 AM EST Never Smoker completed Never S moker eCW1 ([facility]) Patient Treatment Plan of Care Planned Activity Planned Date Details Description Data Source (s) Lancets - 03/20/2020 12:00:00 AM EST e CW1 ([facility]) Blood Glucose Test - 03/20/2020 12:00:00 AM EST eCW1 ([facility]) Glucometer 03/20/2020 12:00:00 AM EST e CW1 ([facility])
[2020-03-27 03:49] LABS: NT-PRO BNP 7479 PG/ML (<125)
--- NOTE | 2020-03-27 05:06 | REPVR ---
PROCEDURE INFORMATION: Exam: CT Abdomen And Pelvis Without Contrast Exam date and time: 03/27/2020 3:50 AM Age: 44 years old Clinical indication: Other: Scrotal swelling/tenderness, ckd, eval for infection TECHNIQUE: Imaging protocol: Computed tomography of the abdomen and pelvis without contrast. Radiation optimization: All CT scans at this facility use at least one of these dose optimization techniques: automated exposure control; mA and/or kV adjustment per patient size (includes targeted exams where dose is matched to clinical indication); or iterative reconstruction. COMPARISON: No relevant prior studies available. FINDINGS: Lungs: Atelectasis or scarring at the right lung base lingula. Mild dependent atelectasis at the left base. Pleural spaces: Trace right pleural effusion. Liver: Hepatomegaly and liver contour nodularity suggestive of cirrhosis. Exophytic cystic lesion in the right hepatic lobe. Gallbladder and bile ducts: Normal. No calcified stones. No ductal dilation. Pancreas: Normal. No ductal dilation. Spleen: Normal. No splenomegaly. Adrenal glands: Normal. No mass. Kidneys and ureters: Normal. No hydronephrosis. Stomach and bowel: Scattered colonic diverticula. No evidence of acute diverticulitis. Appendix: No evidence of appendicitis. Intraperitoneal space: Moderate ascites. Vasculature: Unremarkable. No abdominal aortic aneurysm. Lymph nodes: Bilateral inguinal, common femoral, and external iliac adenopathy. Urinary bladder: Unremarkable as visualized. Reproductive: Unremarkable as visualized. Bones/joints: Mild multilevel degenerative disc disease. Soft tissues: Anasarca. Fat containing left inguinal hernia. IMPRESSION: Hepatomegaly and liver contour nodularity suggestive of cirrhosis. Exophytic cystic lesion in the right hepatic lobe. Moderate ascites. Scattered colonic diverticula. No evidence of acute diverticulitis. Electronically signed by: Rigo Jordan On 03/27/2020 05:06:22 AM
--- NOTE | 2020-03-27 07:57 | ECGEPIP ---
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
[2020-03-27] MEDS ORDERED: GABAPENTIN 300 MG CAP PO ONE (08:15)
--- OUTSIDE RECORDS SUMMARY | 2020-03-27 09:33 | CCD ---
Author Author [facility] Organization [facility] Address Unknown Phone Unavailable Support Name Relationship Address Phone ELE LIVE Next [place] [address] [place] [address] UE Next Of Kin Unknown Unavailable ELE WALTERS Next Of Kin [address] [place] [address] E[place] [address] [place] [address] Unavailable Re-disclosure Warning The records that you [...] is protected by Article 27-F of the [facility] Public Health law. If you continue you may have access to information: Regarding HIV / AIDS; Provided by facilities licensed or operated by the [facility] Office of Mental Health; or Provided by the [facility] Office for People With Developmental Disabilities. If such information is present, then the following [facility] mandated warning applies: This information has [...] law may result in a fine or longterm sentence or both. A general authorization for the release of medical or other information is NOT sufficient authorization for further disc losure. Encounters Encounter Providers Location Date Indications Data Source(s ) Unknown [address] [facility], [facility] [address] 03/21/2020 12:00:00 AM EST eCW1 (Formerly [facility]) Medications Medication Brand Name Start Date Product Form Dose Route Admi nistrative Instructions Pharmacy Instructions Status Indications Reaction Description Data Source(s) Glucometer UNK 03/20/2020 12:00:00 AM EST active Glucometer eCW1 ([facility]placed By [facility]) Blood Glucose Test - Blood Glucose Test - 03/20/2020 12:00:00 AM EST active Blood Glucose Test - eCW1 ([facility]) Lancets - Lancets - 03/20/2020 12:00:00 AM EST act dion Lancets - eCW1 (Replaced By [facility]) Insurance Providers Payer name Policy type / Coverage type Policy ID Covered alliance party ID Covered alliance party's relationship to mcghee Policy Mcghee Plan Information [facility] 290/790 [id number] SP [id number] [employer] BC-BS PPO 306 [id number] SP [id number] [facility] 290/790 [id number] SP [id number] BCBS [facility] 290/790 [id number] SP [id number] SELF PAY ONLY [id number] SP [id number] Problems, Conditions, and Diagnoses Code Display Name Description Problem Type Effective Dates Data Source(s) E11.65 [id number] Poorly controlled diabetes mellitus Probl em 03/20/2020 12:00:00 AM EST eCW1 ([facility]placed [facility]) G62.9 36323956 Peripheral polyneuropathy Problem 03/20/2020 12:00:00 AM EST eCW1 ([facility]placed By [facility]) I50.9 67175974 Congestive heart melissa lure, unspecified HF chronicity, unspecified heart failure type Problem 03/20/2020 12:00:00 AM EST eCW1 ([facility]) I48.0 316892911 Paroxysmal atrial fibrillation Problem 03/20/2020 12:00:00 AM EST eCW1 (Replaced By [facility]) G47.00 257446334 Insomnia, unspecified type Problem 12:00:00 AM EST eCW1 ([facility]placed By [facility]) Social History Code Duration Value Status Description Data Source(s ) Smoking 03/20/2020 12:00:00 AM EST Never Smoker completed Never S moker eCW1 (Replaced By [facility]) Patient Treatment Plan of Care Planned Activity Planned Date Details Description Data Source (s) Lancets - 03/20/2020 12:00:00 AM EST e CW1 (Replaced By [facility]) Blood Glucose Test - 03/20/2020 12:00:00 AM EST eCW1 (Replaced By [facility]) Glucometer 03/20/2020 12:00:00 AM EST e CW1 (Replaced By [facility])
[2020-03-27] MEDS: FUROSEMIDE 40MG/4ML VIAL (J1940) IV SCH ×2 (10:22→18:02)
[2020-03-27 12:39] VITALS: BP 116/84
[2020-03-27 13:57] LABS: INR 1.45
[2020-03-27 13:58] LABS: PARTIAL THROMBOPLASTIN TIME 32.9 SECONDS (24.2-38.5)
[2020-03-27 14:00] VITALS: BP 116/84
[2020-03-27 14:34] LABS: HEPATITIS B SURFACE ANTIGEN NEGATIVE (NEGATIVE)
[2020-03-27 15:00] LABS: HEPATITIS C VIRUS ABY INDEX 0.1 INDEX (<0.8)
[2020-03-27 15:01] LABS: HEPATITIS B CORE ANTIBODY IGM NEGATIVE (NEGATIVE)
[2020-03-27 15:03] LABS: HEPATITIS A ANTIBODY IGM NEGATIVE (NEGATIVE)
--- NOTE | 2020-03-27 15:26 | REP ---
INDICATION: cirrhosis on CT with cystic lesion. COMPARISON: Comparison is made with today's CT study 03/27/2020.. TECHNIQUE: Right upper quadrant sonography. FINDINGS: Scanning through the right upper quadrant of the abdomen demonstrates mild diffuse abdominal ascites. The gallbladder is normal in size with very slightly thickened wall but no evidence of stone or polyp. Common bile duct is somewhat dilated measuring 1.2 cm in greatest diameter. Coarse liver texture is seen consistent with the history of cirrhosis. No mass lesion is observed. There are 2 exophytic peripheral cysts extending from the right lobe of the liver. These measures 6.6 x 4.9 x 5.1 cm and 9.4 x 1.5 x 5.6 cm respectively. The elongate cystic component could conceivably be ascitic fluid possibly loculated. These appear to be simple fluid. The pancreas is obscured by abdominal gas. No right renal abnormality is seen. The right kidney measures 11.6 x 5.7 x 5.0 cm.. IMPRESSION: Mild ascites. Two simple cysts exophytic from the right lobe of the liver. Coarse liver texture consistent with some degree of cirrhosis. No focal liver mass lesion seen. Mild CBD dilation 1.2 cm.. <Electronically signed by Srinivas Albright > 03/27/20 1113
[2020-03-27] MEDS ORDERED: GLUCAGON INJ 1MG VIAL SC PRN (16:00)
[2020-03-27] MEDS ORDERED: DEXTROSE 50% 50 ML SYRINGE IV PRN (16:00)
[2020-03-27] MEDS ORDERED: GLUCOSE 4GM CHEW TABLET PO PRN (16:00)
--- NOTE | 2020-03-27 16:51 | HPEPDOC ---
General Date of Admission Mar 27, 2020 at 08:52 Date of Service: Mar 27, 2020 Primary Care Physician: ANNY DAVEY DO Attending Physician: ARMANDO CHAMBERS MD Chief Complaint The patient is a 44-year-old male admitted with a reason for visit of Cad, Chf, Dm Type 2, Scrotal Edema. Source: Patient Exam Limitations: No limitations Timing/Duration: 1/2-1 hour Severity: Moderate History of Present Illness Pt is a 44YO male with a PMH of HFrEF (LVEF 10-20%), atrial fibrillation, T2DM non-insulin dependent, inconsistent medical care, presenting with abdominal d istention, lower leg swelling, and scrotal edema. He reports that he first noticed the abdominal distention 2-3 days ago and noticed a scrotal edema today, which prompted him to come in. He denies any abdominal pain, nausea, vomiting, diarrhea, and constipation at this time. He also denies hematuria, dysuria, and scrotal pain today. Patient reports a normal appetite and states that his last bowel movement was last night. Patient denies chest pain at this time, but reports shortness of breath with exertion which is at baseline for him. He was last hospitalized for angina 2 months ago in [place]. He denies any surgical intervention and states that after medical intervention in the hospital, he sought no continual medical care. He presented to [facility] on 03/16/2020 for acute kidney injury. At that time kidney injury was related to Bumex and Advil use. Pt states that he avoided ibuprofen, however continued Aleve use. He reports taking one pill of Aleve last week at which time his face swelled up lasting 3-4 days, denies laryngeal or tongue swelling. Face swelling resolved without medical intervention and he has discontinued use since. Although Dr. Davey is pt's PCP, he has been newly established as pt moved here 3 weeks ago from [place]. Pt reports that he was supposed to see Dr. Davey today to adjust insulin medications for his diabetes. Home Medications Scheduled Atorvastatin Calcium (Atorvastatin Calcium) 40 Mg Tablet, 40 MG PO QHS, (Reported) Bumetanide (Bumetanide) 1 Mg Tablet, 1 MG PO TID, (Reported) Carvedilol (Carvedilol) 3.125 Mg Tablet, 3.125 MG PO BID, (Reported) Gabapentin (Gabapentin) 300 Mg Capsule, 300 MG PO TID, (Reported) Lisinopril (Lisinopril) 5 Mg Tablet, 5 MG PO DAILY, (Reported) Magnesium Oxide (Magnesium Oxide) 400 Mg Tablet, 400 MG PO QHS, (Reported) Metoprolol Succinate (Metoprolol Succinate) 25 Mg Tab.er.24h, 25 MG PO DAILY, (Reported) Pantoprazole Sodium (Pantoprazole Sodium) 40 Mg Tablet.dr, 40 MG PO DAILY, (Reported) Warfarin Sodium (Warfarin Sodium) 5 Mg Tablet, 5 MG PO QAM, (Reported) Allergies Coded Allergies: NSAIDS (Non-Steroidal Anti-Inflamma (Verified Allergy, Intermediate, SWELLING OF FACE, 03/17/20) Past Medical History Medical History Diastolic, Systolic Dysfunction, dilated cardiomyopathy, LVEF 10-20% Atrial Fibrillation Type 2 Diabetes Mellitus Diabetic Neuropathy s/p Gastric Ulcer Surgical History Resection of ruptured gastric ulcer, 01/2020 Family History Significant Family History: Diabetes, Heart disease Mother: CHF, T2DM Social History * Smoker: former Smoker, quit less than 1 year, greater than 1 pack/day, other (40pack years) Alcohol: occationally Drugs: cocaine, other (methamphetamine, 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 Metformin was administered per medical care in senior living, but pt did not seek medical care after he was released. He also reports a drug history: smoked cocaine and methamphetamines since the age of 15. Sober for the past 9 months. Denies IV drug use. 40 pack year tobacco history. Quit smoking 5 months ago. Seldom drinks alcohol, last drink was last week when he consumed one dev. A-FIB/CHADSVASC A-FIB History Current/History of A-Fib/PAF?: Yes Current PO Anticoag Therapy: Yes (5 mg warfarin) Review of Systems Constitutional: Reports: Chills; Denies: Fever, Night Sweats, Weakness, Fatigue Eyes: Denies: Pain, Vision change, Redness ENT: Denies: Head Aches, Ear Pain, Sinus Congestion, Sore Throat Skin: Denies: Rash, Lesions Pulmonary: Reports: Dyspnea (on exertion, see HPI, chronic, no acute changes); Denies: Cough Cardiovascular: Reports: Edema (lower extremitiesx3 days); Denies: Chest Pain, Palpitations, Orthopnea Gastrointestinal: Denies: Nausea, Vomiting, Abdominal Pain, Diarrhea, Constipation, Melena, Hematochezia, Other Symptoms Genitourinary: Denies: Dysuria, Hematuria Musculoskeletal: Denies: Muscle Pain Neurological: Denies: Weakness, Numbness, Incoordination Psych: Reports: Mood Normal Physical Examination General Exam: Positive: Alert, Cooperative, No Acute Distress Eye Exam: Positive: Conjunctiva & lids normal ENT Exam: Positive: Atraumatic, Mucous membr. moist/pink Chest Exam: Positive: Clear to auscultation; Negative: Rales, Rhonchi, Wheezing Heart Exam: Positive: Tachycardic (slight), Normal S1, Normal S2; Negative: Gallops, Murmurs, Rubs Abdomen Exam: Positive: Normal bowel sounds, Tenderness, Hepatospenomegaly; Negative: Soft Extremity Exam: Positive: Edema (+2 from feet to thighs, abdominal wall edema) Other physical findings Scrotum: no erythema, generalized edema present, no skin rash/lesions Vital Signs Vital Signs Date Time Temp Pulse Resp B/P (MAP) Pulse Ox O2 Delivery O2 Flow Rate FiO2 03/27/20 12:39 98.0 106 17 116/84 (95) 99 Room Air Laboratory Data Labs 24H Laboratory Tests 2 03/27/20 02:26: Anion Gap 10, Glomerular Filtration Rate > 60.0, Calcium Level 8.1L, Total Bilirubin 2.4H, Direct Bilirubin 1.2H, Aspartate Amino Transf (AST/SGOT) 32, Alanine Aminotransferase (ALT/SGPT) 19, Alkaline Phosphatase 245H, Total Creatine Kinase 88, Creatine Kinase MB 1.1, Creatine Kinase MB Relative Index 1.25, Troponin I < 0.02, MG-Eyu-B-Type Natriuretic Peptide 7479H, Total Protein 7.4, Albumin 2.5L, Albumin/Globulin Ratio 0.5, Lipase 227 03/27/20 02:27: Immature Granulocyte % (Auto) 0.3, Neutrophils (%) (Auto) 61.7, Lymphocytes (%) (Auto) 19.3L, Monocytes (%) (Auto) 14.4H, Eosinophils (%) (Auto) 3.2H, Basophils (%) (Auto) 1.1H, Neutrophils # (Auto) 4.4, Lymphocytes # (Auto) 1.4L, Monocytes # (Auto) 1.0H, Eosinophils # (Auto) 0.2, Basophils # (Auto) 0.1, Nucleated Red Blood Cells % (auto) 0.0, Coronavirus (COVID-19)(PCR) POSITIVEA, Influenza Type A (RT-PCR) NEGATIVE, Influenza Type B (RT-PCR) NEGATIVE, Respiratory Syncytial Virus (PCR) NEGATIVE 03/27/20 02:28: Lactic Acid Level 1.5 03/27/20 13:38: Prothrombin Time 18.0H, Prothromb Time International Ratio 1.45, Activated Partial Thromboplast Time 32.9 CBC/BMP Laboratory Tests 03/27/20 02:26 03/27/20 02:27 Microbiology Microbiology 03/27/20 Blood Culture, Received Pending 03/27/20 Blood Culture, Received Pending Echocardiogram 03/21/2020: LVEF 10-20%, systolic and diastolic dysfunction. Evidence of dilated right and left heart chambers with RV free wall hypokinesis, moderately severe pulmonary edema. Assessment/Plan #Ascites 2/2 HFrEF or liver cirrhosis and simple lesions: - Ordered hepatitis panel. - Added Spirinolactone 25 mg. - Continue to monitor K+ levels to ensure pt does not develop hyperkalemia due to Spirinolactone and Lisinopril use. - AST: 32, ALT: 19, Alk phos: 245, the AST/ALT ratio is suggestive of long- standing cirrhosis - EF: 10-20%, 03/21/2020 - Liver U/S ordered - Abd CT showed hepatomegaly with liver nodularity suggestive of cirrhosis, exophytic cystic lesion of the R hepatic lobe and moderate ascites. - Consider 25 g 25% albumin tomorrow after urinalysis has ruled out possible nephrotic syndrome. #Rule out possible infection, unknown source - Diagnostic Paracentesis ordered tomorrow AM to rule out SBP with ascitic fluid analysis. - Urine cultures ordered to rule out UTI. - Blood Cultures ordered. - CBC with differential ordered. #Type II DM: - Sliding scale insulin has been ordered. - Not considering long-acting insulin (levemir, etc.) at this time since pt's glycemic levels are not severe and pt is scheduled for several procedures that may be needed and pt cannot be hypoglycemic. - Sodium level is 135 corrected for hyperglycemia. #Diabetic Neuropathy: - Continue home medication Gabapentin 300mg PO TID #Diabetic Nephropathy/possible nephrotic syndrome: - Urinalysis ordered #HFrEF with possible h/o NSTEMI, h/o drug use - Continue home medication: Atorvastatin 40mg PO qhs - Continue home medication: Carvedilol 3.125 mg PO BID - Start Furosemide 80 mg BID tomorrow, 40 mg TID today which is equivalent to his home dose of Bumetanide 1mg TID. - Echo 03/21/20 showed EF of 10-20% with dilated cardiomyopathy #Paroxysmal Atrial Fibrillation: - Pt is currently rate-controlled. - Continue home medication: metoprolol succinate 25 mg PO daily - Continue home medication: warfarin 5 mg daily #s/p laparotomy for gastric ulcer perforation: - Continue home dose of Protonix. DVT Prophylaxis: compression stockings, already on Warfarin 5mg for atrial fibrillation. Disposition: Pending clinical evaluation. Plan / VTE VTE Prophylaxis Ordered?: Yes (5 mg Warfarin for atrial fibrillation) GME ATTESTATION My faculty preceptor for this patient encounter was physically present during the encounter and was fully available. All aspects of the patient interview, examination, medical decision making process, and medical care plan development were reviewed and approved by the faculty preceptor. The faculty preceptor is aware and concurs with the plan as stated in the body of this note and will attest to such by his/her cosignature. Milton Dillard DO Mar 27, 2020 15:09
[2020-03-27] MEDS ORDERED: WARFARIN SOD 5MG TAB PO SCH (17:00)
[2020-03-27] MEDS: lisinopriL 5 MG TAB PO SCH (18:01)
[2020-03-27] MEDS: PANTOPRAZOLE 40MG TAB (PROTONIX) PO SCH (18:02)
[2020-03-27] MEDS: HumaLOG INSULIN (NovoLOG) PER UNIT SC SCH ×2 (18:02→21:00)
[2020-03-27] MEDS: METOPROLOL SUCC *XL* 25MG TAB (TopROL *XL*) PO SCH (18:02)
[2020-03-27 18:15] LABS: BASO # 0.1 10^3/uL (0.0-0.2); BASO % 1.1 % (0.0-1.0); EOS # 0.2 10^3/uL (0.0-0.5); EOS % 2.4 % (0.0-3.0); HEMATOCRIT 34.6 % (42.0-52.0); HEMOGLOBIN 10.4 g/dl (13.5-17.5); LYMPH # 1.2 10^3/uL (1.5-5.0); LYMPH % 16.9 % (24.0-44.0); MEAN CORPUSCULAR HEMOGLOBIN 22.9 pg (27.0-33.0); MEAN CORPUSCULAR HGB CONC 30.1 g/dl (32.0-36.5); MEAN CORPUSCULAR VOLUME 76.2 fl (80.0-96.0); MONO # 0.9 10^3/uL (0.0-0.8); MONO % 13.4 % (2.0-8.0); NEUTROPHILS # 4.6 10^3/uL (1.5-8.5); NEUTROPHILS % 65.9 % (36.0-66.0); PLATELET COUNT, AUTOMATED 362 10^3/uL (150-450); RED BLOOD COUNT 4.54 10^6/uL (4.30-6.10)
[2020-03-27] MEDS: cefTRIAXone SOD 2 GM in D5W MINI-BAG PLUS 50 ML IV SCH (18:29)
[2020-03-27] MEDS ORDERED: CARVedilol 3.125 MG TAB PO SCH (21:00)
[2020-03-27] MEDS: GABAPENTIN 300 MG CAP PO SCH (21:02)
[2020-03-27] MEDS: ATORVASTATIN 20 MG TAB PO SCH (21:02)
[2020-03-27 21:30] LABS: APPEARANCE, URINE CLEAR (CLEAR); BACTERIA, URINE AUTO NEGATIVE (NEGATIVE); BILIRUBIN, URINE AUTO NEGATIVE (NEGATIVE); BLOOD, URINE BLOOD NEGATIVE (NEGATIVE); COLOR, URINE YELLOW (YELLOW); GLUCOSE, URINE (UA) AUTO NEGATIVE (NEGATIVE); KETONE, URINE AUTO NEGATIVE (NEGATIVE); LEUKOCYTE ESTERASE, URINE AUTO NEGATIVE (NEGATIVE); NITRITE, URINE AUTO NEGATIVE (NEGATIVE); PROTEIN, URINE AUTO NEGATIVE (NEGATIVE); RBC, URINE AUTO 0 /HPF (0-3); SPECIFIC GRAVITY URINE AUTO 1.006 (1.002-1.035); SQUAMOUS EPITHELIAL CELL UR AU 0 /HPF (0-6); WBC, URINE AUTO 0 /HPF (0-3)
[2020-03-27 22:00] VITALS: BP 105/73
[2020-03-28] VITALS (8 sets, daily range): BP systolic 105–132; BP diastolic 74–82
[2020-03-28] MEDS ORDERED: LIDOCAINE 5% OINT 30GM TUBE TOP PRN
[2020-03-28] MEDS ORDERED: LIDOCAINE 5% OINT 30GM TUBE TOP ONE (00:15)
[2020-03-28 00:43] LABS: BLOOD UREA NITROGEN 19 MG/DL (7-18); CALCIUM LEVEL 8.4 MG/DL (8.5-10.1); CARBON DIOXIDE LEVEL 33 MEQ/L (21-32); CHLORIDE LEVEL 94 MEQ/L (98-107); CREATININE FOR GFR 0.89 MG/DL (0.70-1.30); GLOMERULAR FILTRATION RATE > 60.0 (>60); GLUCOSE, FASTING 170 MG/DL (70-100); MAGNESIUM LEVEL 1.5 MG/DL (1.8-2.4); POTASSIUM SERUM 3.8 MEQ/L (3.5-5.1); SODIUM LEVEL 132 MEQ/L (136-145)
[2020-03-28] MEDS ORDERED: MAGNESIUM OXIDE 400MG TAB (MAG-OX) PO ONE ×2 (01:15→05:00)
[2020-03-28] MEDS ORDERED: traMADol 50 MG TAB PO ONE (02:00)
--- NOTE | 2020-03-28 02:44 | REP ---
INDICATION: rule out causes of fever and chills COMPARISON: 03/16/2020 TECHNIQUE: PA and lateral. FINDINGS: The mediastinum and cardiac silhouette are normal. The lung vargas are clear and without acute consolidation, effusion, or pneumothorax. The skeletal structures are intact and normal. IMPRESSION: No acute cardiopulmonary process. <Electronically signed by Nir Spencer > 03/28/20 4720
[2020-03-28 06:50] LABS: BASO # 0.1 10^3/uL (0.0-0.2); EOS # 0.2 10^3/uL (0.0-0.5); EOS % 2.3 % (0.0-3.0); HEMATOCRIT 31.9 % (42.0-52.0); HEMOGLOBIN 9.4 g/dl (13.5-17.5); LYMPH # 1.4 10^3/uL (1.5-5.0); LYMPH % 19.9 % (24.0-44.0); MEAN CORPUSCULAR HEMOGLOBIN 21.9 pg (27.0-33.0); MEAN CORPUSCULAR HGB CONC 29.5 g/dl (32.0-36.5); MEAN CORPUSCULAR VOLUME 74.4 fl (80.0-96.0); NEUTROPHILS # 4.4 10^3/uL (1.5-8.5); NEUTROPHILS % 62.5 % (36.0-66.0); PLATELET COUNT, AUTOMATED 374 10^3/uL (150-450); RED BLOOD COUNT 4.29 10^6/uL (4.30-6.10)
[2020-03-28 06:53] LABS: INR 1.34; PROTHROMBIN TIME 16.9 SECONDS (12.5-14.3)
[2020-03-28 07:08] LABS: ALBUMIN 2.4 GM/DL (3.2-5.2); ALT/SGPT 17 U/L (12-78); BILIRUBIN,TOTAL 2.7 MG/DL (0.2-1.0); BLOOD UREA NITROGEN 18 MG/DL (7-18); CALCIUM LEVEL 8.4 MG/DL (8.5-10.1); CARBON DIOXIDE LEVEL 28 MEQ/L (21-32); CHLORIDE LEVEL 93 MEQ/L (98-107); CREATININE FOR GFR 0.79 MG/DL (0.70-1.30); GLOMERULAR FILTRATION RATE > 60.0 (>60); GLUCOSE, FASTING 169 MG/DL (70-100); MAGNESIUM LEVEL 1.7 MG/DL (1.8-2.4); SODIUM LEVEL 130 MEQ/L (136-145); TOTAL PROTEIN 7.1 GM/DL (6.4-8.2)
[2020-03-28] MEDS: lisinopriL 5 MG TAB PO SCH (08:19)
[2020-03-28] MEDS ORDERED: MAG SULF 1GM/100ML (MAG RUN) 1 GM in IV 1 EA IV ONE (08:30)
[2020-03-28 08:31] LABS: BILIRUBIN,DIRECT 1.3 MG/DL (0.0-0.2)
[2020-03-28] MEDS ORDERED: LIDOCAINE 5% OINT 30GM TUBE TOP SCH (09:00)
[2020-03-28] MEDS: METOPROLOL SUCC *XL* 25MG TAB (TopROL *XL*) PO SCH (09:00)
[2020-03-28] MEDS: FUROSEMIDE 100MG/10ML VIAL (J1940) IV SCH ×2 (09:00→17:00)
[2020-03-28] MEDS ORDERED: SPIRONOLACTONE 25 MG TAB PO SCH (09:00)
[2020-03-28] MEDS: HumaLOG INSULIN (NovoLOG) PER UNIT SC SCH ×4 (09:13→20:41)
[2020-03-28] MEDS ORDERED: SODIUM BICARBONATE 8.4% INJ 50MEQ 50 ML VIAL As Ordered ONE (09:51)
[2020-03-28] MEDS ORDERED: FUROSEMIDE 40MG/4ML VIAL (J1940) IV ONE (10:00)
--- NOTE | 2020-03-28 10:56 | IPNPDOC ---
Text Note Date of Service The patient was seen on 03/28/20. NOTE Subjective: Patient is a 44 year old male with a history of HFrEF (LVEF 10-20%), atrial fibrillation, T2DM non-insulin dependent, inconsistent medical care, who pre sented the the ED on 03/27/2020 with abdominal distention, lower leg swelling, and scrotal edema. Abdominal distention was first noticed by patient 2-3 days prior to presentation and scrotal swelling was noticed on the day of presentation. Patient was admitted to the hospitalist team due to fluid ove rload. Overnight, patients states that he had an episode of b/l calf pain, from the ankles to the knees, that felt like "needles were poking me in the back of the legs". He states that he has had similar symptoms in the past when he was diagnosed with diabetic neuropathy, for which he takes Gabapentin. Nurse confirms that his last dose of Gabapentin was around 9PM yesterday. Topical lidocaine was used for leg pain and gave patient minimal relief. Patient states that he feels as if he is less distended compared to yesterday but he has some soreness in his abdomen. He still reports no abdominal pain at this time. Patient states that he has been eating and drinking without difficulty. His last BM was yesterday night. Still denies fevers, chills, and night sweats. Reports good appetite. Has no new complaints today. Objective: GENERAL: Patient is alert, cooperative, and in no acute distress. HEENT: NC/AT. PERRLA. No conjunctival injection. Mucous [id number] are pink and moist. PULMONARY: Lungs are clear to auscultation with no wheezes, rales, or rhonchi CARDIOVASCULAR: Regular rate and rhythm with normal S1/S2. No gallops, murmurs, rubs ABDOMEN: No abdominal pain on palpation. bowel sounds present. Hepatosplenomegaly present. EXTREMITIES: 2+ lower extremity edema R>L, improving. Tenderness to palpation of posterior leg with no erythema appreciated. MUSCULOSKELETAL: Normal ROM of b/l feet without pain Assessment/Plan: #Ascites 2/2 HFrEF or liver cirrhosis and simple lesions: - Ordered hepatitis panel. - Added Spirinolactone 25 mg. - Continue to monitor K+ levels to ensure pt does not develop hyperkalemia due to Spirinolactone and Lisinopril use. - Today, AST: 20, ALT: 17, Alk phos: 238, mild decrease in AST. - EF: 10-20%, 03/21/2020 - Liver U/S: two simple cysts from R lobe of liver, 03/27/20. - Abd CT showed hepatomegaly with liver nodularity suggestive of cirrhosis, exophytic cystic lesion of the R hepatic lobe and moderate ascites. - Patient placed on 2L fluid restriction and 2 g sodium diet. - Patient was taken for paracentesis and consent for albumin 25% was signed by patient. - Albumin fluid analysis includes: cell count, protein levels, albumin levels, and LDH levels. - Albumin administration 25g of 25% ordered to be given during pt's paracentesis procedure. - Holding spironolactone, warfarin, metoprolol, lisinopril, ceftriaxone, carvedilol, and atorvastatin. - Will give Lasix 40mg after paracentesis and resume 80 mg Lasix BID tonight #Hypomagnesemia: - Pt has hypomagnesemia: 1.7 today. - Received 400 mg magnesium last night. - Received 1 gm IV magnesium given today. - Continue to monitor magnesium levels. - Repeat magnesium level tomorrow AM. #Rule out possible DVT - Patient's Warfarin was stopped and patient's INR was sub-therapeutic. - Will continue warfarin tonight after paracentesis has been done. - Duplex ultrasound, bilateral lower extremity ordered. #Rule out possible infection, unknown source - Patient was taken for diagnostic paracentesis this morning to rule out SBP w ith ascitic fluid analysis. - Urine cultures ordered to rule out UTI, pending. - Blood Cultures ordered, pending. - CBC with differential ordered - WBC 7.0 and WNL. #Type II DM: - Pt's FSGS today: 169, down from 236 yesterday (yesterday's was not fasting glucose, however.) - HbA1c, 8.2, 03/16/2020. - Sliding scale insulin has been ordered. - Not considering long-acting insulin (levemir, etc.) at this time since pt's glycemic levels are not severe and pt is scheduled for several procedures that may be needed and pt cannot be hypoglycemic. - Sodium level is 135 corrected for hyperglycemia. #Diabetic Neuropathy: - Continue home medication Gabapentin 300mg PO TID #Diabetic Nephropathy/possible nephrotic syndrome: - Urinalysis ordered #HFrEF with possible h/o NSTEMI, h/o drug use - Continue home medication: Atorvastatin 40mg PO qhs - Continue home medication: Carvedilol 3.125 mg PO BID - 40 mg Furosemide this morning, 80 mg Furosemide to be started later today - Echo 03/21/20 showed EF of 10-20% with dilated cardiomyopathy #Paroxysmal Atrial Fibrillation: - Pt is currently rate-controlled. - Continue home medication: metoprolol succinate 25 mg PO daily (held today for paracentesis). - Continue home medication: warfarin 5 mg daily (held last night for paracentesis). #s/p laparotomy for gastric ulcer perforation: - Continue home dose of Protonix. DVT Prophylaxis: Compression stockings, already on Warfarin 5mg for atrial fibrillation. Disposition: Pending clinical evaluation. GME ATTESTATION My faculty preceptor for this patient encounter was physically present during the encounter and was fully available. All aspects of the patient interview, examination, medical decision making process, and medical care plan development were reviewed and approved by the faculty preceptor. The faculty preceptor is aware and concurs with the plan as stated in the body of this note and will attest to such by his/her cosignature. VS,Fishbone, I+O VS, Fishbone, I+O Laboratory Tests 03/27/20 17:54 03/28/20 00:08 03/28/20 05:28 Vital Signs Date Time Temp Pulse Resp B/P (MAP) Pulse Ox O2 Delivery O2 Flow Rate FiO2 03/28/20 08:30 95 107/76 (86) 98 Room Air 03/28/20 06:00 98.2 18 I&O- Last 24 Hours up to 6 AM 03/28/20 06:00 Intake Total 2160 ml Output Total 1825 ml Balance 335 ml GME ATTESTATION GME ATTESTATION My faculty preceptor for this patient encounter was physically present during the encounter and was fully available. All aspects of the patient interview, examination, medical decision making process, and medical care plan development were reviewed and approved by the faculty preceptor. The faculty preceptor is aware and concurs with the plan as stated in the body of this note and will attest to such by his/her cosignature. Jessica SCHMITZ OMS-3 Mar 28, 2020 10:30 Milton Dillard DO Mar 28, 2020 11:12
[2020-03-28 11:09] LABS: APPEARANCE, BODY FLUID CLEAR (CLEAR); ASCITES FL COLOR YELLOW (COLORLESS); SOURCE, BODY FLUID ASCITES
--- NOTE | 2020-03-28 11:17 | REP ---
INDICATION: edema and bilateral lower extremitiy pain COMPARISON: None. TECHNIQUE: Ramirez scale and color Doppler evaluation bilateral lower extremities using linear high frequency transducer. FINDINGS: Subcutaneous edema noted bilaterally. Ultrasound examination of the right and left lower extremity deep venous structures from the common femoral vein to the popliteal vein demonstrates normal compressibility flow and wave patterns in response to respiration and augmentation. There is no evidence for deep venous thrombosis. IMPRESSION: No evidence for deep venous thrombosis. <Electronically signed by Nir Spencer > 03/28/20 1111
[2020-03-28] MEDS: PANTOPRAZOLE 40MG TAB (PROTONIX) PO SCH (11:20)
[2020-03-28] MEDS: GABAPENTIN 300 MG CAP PO SCH ×3 (11:21→20:40)
[2020-03-28 11:37] LABS: LDH, BODY FLUID 121 U/L (NOT ESTABLISHED); SOURCE, BODY FLUID ALBUMIN ASCITES; SOURCE, BODY FLUID LDH ASCITES; SOURCE, BODY FLUID TOT PROTEIN ASCITES; TOTAL PROTEIN, BODY FLUID 3.3 G/DL (NOT ESTABLISHED)
--- NOTE | 2020-03-28 13:34 | REP ---
INDICATION: Ascites; diagnostic and therapeutic The patient has a history of ascites COMPARISON: None. TECHNIQUE: The procedure was performed by Nel Marcus [facility], under the direct supervision of Dr. Albright The risks and benefits of the procedure were explained to the patient and an informed consent was obtained both verbally and written. Directly prior to the start of the procedure a formal time-out was completed in the procedure room. The largest pocket of fluid was localized in the left flank using ultrasound guidance. The skin was prepped and draped in a sterile fashion. Eleven ML of buffered lidocaine was used as a local anesthetic. An 8-Spanish multi side-hole catheter was inserted using trocar technique. FINDINGS: 3150 mL of yellow ascites was removed in total common 1300 was sent to the laboratory for further analysis, and the rest was discarded. The patient tolerated the procedure well and there were no immediate complications. After the appropriate amount of monitored convalescence, the patient was discharged from the department. IMPRESSION: Ultrasound-guided paracentesis with removal of 3150 mL of yellow ascites. <Electronically signed by Nel Marcus > 03/28/20 1208 <Electronically signed by Srinivas Albright > 03/28/20 1337
--- NOTE | 2020-03-28 14:59 | REP ---
INDICATION: elevated bilirubin levels from prior. COMPARISON: Comparison CT study March 27, 2020.. TECHNIQUE: MRCP protocol. Axial and coronal T2 weighted scans were obtained. MRCP acquisition was acquired and maximum density projection images were attempted. FINDINGS: The study is technically un readable. There is artifactual signal intensity an cancellation attributable to this patient's diffuse ascites. The bile ducts could not be visualized.. IMPRESSION: Extensive imaging artifact due to patient's ascites. Multiple sequences were attempted but MRCP could not be accomplished. Unreadable images. <Electronically signed by Srinivas Albright > 03/28/20 3107
[2020-03-28] MEDS: cefTRIAXone SOD 2 GM in D5W MINI-BAG PLUS 50 ML IV SCH (17:33)
[2020-03-28] MEDS: ATORVASTATIN 20 MG TAB PO SCH (20:40)
[2020-03-28] MEDS: WARFARIN SOD 5MG TAB PO SCH (20:40)
[2020-03-29 06:00] VITALS: BP 114/83
[2020-03-29 06:17] LABS: BASO # 0.1 10^3/uL (0.0-0.2); BASO % 1.2 % (0.0-1.0); EOS # 0.1 10^3/uL (0.0-0.5); EOS % 2.1 % (0.0-3.0); HEMATOCRIT 32.7 % (42.0-52.0); HEMOGLOBIN 10.4 g/dl (13.5-17.5); LYMPH # 1.4 10^3/uL (1.5-5.0); LYMPH % 20.9 % (24.0-44.0); MEAN CORPUSCULAR HEMOGLOBIN 23.6 pg (27.0-33.0); MEAN CORPUSCULAR HGB CONC 31.8 g/dl (32.0-36.5); MEAN CORPUSCULAR VOLUME 74.3 fl (80.0-96.0); MONO % 14.4 % (2.0-8.0); NEUTROPHILS # 4.1 10^3/uL (1.5-8.5); NEUTROPHILS % 61.1 % (36.0-66.0); PLATELET COUNT, AUTOMATED 399 10^3/uL (150-450); WHITE BLOOD COUNT 6.8 10^3/uL (4.0-10.0)
[2020-03-29 06:29] LABS: INR 1.45
[2020-03-29 06:51] LABS: ALBUMIN 2.4 GM/DL (3.2-5.2); ALT/SGPT 14 U/L (12-78); BLOOD UREA NITROGEN 16 MG/DL (7-18); CALCIUM LEVEL 8.8 MG/DL (8.5-10.1); CARBON DIOXIDE LEVEL 28 MEQ/L (21-32); CHLORIDE LEVEL 95 MEQ/L (98-107); CREATININE FOR GFR 0.72 MG/DL (0.70-1.30); GLOMERULAR FILTRATION RATE > 60.0 (>60); GLUCOSE, FASTING 110 MG/DL (70-100); MAGNESIUM LEVEL 1.9 MG/DL (1.8-2.4); POTASSIUM SERUM 4.2 MEQ/L (3.5-5.1); SODIUM LEVEL 130 MEQ/L (136-145)
[2020-03-29 08:47] LABS: BILIRUBIN,DIRECT 1.4 MG/DL (0.0-0.2)
[2020-03-29] MEDS: HumaLOG INSULIN (NovoLOG) PER UNIT SC SCH ×3 (08:55→17:35)
[2020-03-29 08:56] VITALS: BP 118/80
[2020-03-29] MEDS: FUROSEMIDE 100MG/10ML VIAL (J1940) IV SCH ×2 (08:56→16:05)
[2020-03-29] MEDS: METOPROLOL SUCC *XL* 25MG TAB (TopROL *XL*) PO SCH (08:56)
[2020-03-29] MEDS: GABAPENTIN 300 MG CAP PO SCH ×2 (08:56→16:05)
[2020-03-29] MEDS: PANTOPRAZOLE 40MG TAB (PROTONIX) PO SCH (08:56)
[2020-03-29] MEDS: lisinopriL 5 MG TAB PO SCH (08:56)
[2020-03-29] MEDS ORDERED: SPIRONOLACTONE 12.5MG PER 1/2 TABLET PO SCH (09:00)
[2020-03-29 13:13] VITALS: BP 111/80
[2020-03-29] MEDS ORDERED: ALDA25TA2 PO (15:25)
--- NOTE | 2020-03-29 15:38 | DS.PDOC ---
Discharge Summary General Date of Admission Mar 27, 2020 at 08:52 Date of Discharge Mar 29, 2020 Primary Care Physician: ANNY DAVEY DO Attending Physician: ARMANDO CHAMBERS MD Discharge Summary PROCEDURES PERFORMED DURING STAY: Paracentesis (3.15L yellow ascitic fluid taken off, with ascitic fluid analysis). ADMITTING DIAGNOSES: 1. Decompensated Liver Failure with ascites, and bilateral lower extremity edema. 2. Possible spontaneous bacterial peritonitis 3. Type II DM, not controlled 4. 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 Paroxysmal Atrial Fibrillation, metoprolol and on warfarin 5mg at home DISCHARGE DIAGNOSES: #SVT, transfer for AICD placement #Possible spontaneous bacterial peritonitis. #Hyponatremia #Decompensated Liver Failure with ascites, and bilateral lower extremity edema. #Type II DM, not controlled #Paroxysmal Atrial Fibrillation, now with runs of SVT COMPLICATIONS/CHIEF COMPLAINT: Cad, Chf, Dm Type 2, Scrotal Edema. HISTORY OF PRESENT ILLNESS: Mr. Pena is a 44-year-old male with a past medical history of failure with reduced ejection fraction (LVEF 10-20%), atrial fibrillation, type 2 diabetes mellitus [id number], inconsistent medical care, presenting with abdominal distention, lower leg swelling, and scrotal edema. He reports that he first noticed the abdominal distention 2-3 days ago and noticed a scrotal edema today, which prompted him to come in. He denies any abdominal pain, nausea, vomiting, diarrhea, and constipation at this time. He also denies hematuria, dysuria, and scrotal pain today. Patient reports a normal appetite and states that his last bowel movement was last night. Patiandres t denies chest pain at this time, but reports shortness of breath with exertion which is at baseline for him. He was last hospitalized for angina 2 months ago in [place]. He denies any surgical intervention and states that after medical intervention in the hospital, he sought no continual medical care. He presented to [facility] on 03/16/2020 for acute kidney injury. At that time kidney injury was related to Bumex and Advil use. Pt states that he avoided ibuprofen, however continued Aleve use. He reports taking one pill of Aleve last week at which time his face swelled up lasting 3-4 days, denies laryngeal or tongue swelling. Face swelling resolved without medical intervention and he has discontinued use since. Although Dr. Davey is pt's PCP, he has been newly established as pt moved here 3 weeks ago from [place]. Pt reports that he was supposed to see Dr. Davey today to adjust insulin medications for his diabetes. HOSPITAL COURSE: Patient was admitted for fluid overload secondary to decompensated liver failure. Patient was started on furosemide 40 mg 3 times a day and spironolactone 25 mg daily. Home medications were continued: Atorvastatin 40 mg by mouth daily at bedtime, carvedilol 3.125 mg by mouth twice a day, protonix, 300 mg, gabapentin, (patient's bumetanide home dose of 1 mg 3 times a day was changed to furosemide 40 mg 3 times a day as above stated) on admission. His home medication for Atrial fibrillation: Metoprolol succinate 25 mg by mouth daily and warfarin 5 mg daily, was continued. A complete liver function workup was done including: PT/INR, albumin, ammonia, and bilirubin levels. Hepatitis panel ordered on 03/27/2020 was negative. Calculated from alanine aminotransferase and alkaline phosphatase levels on admission (03/27/20), the R factor was 0.1, indicating cholestatic injury possibly secondary to acute on chronic liver failure. Abdominal CT on 03/27/2020 showed: hepatomegaly and liver contour nodularity suggestive of cirrhosis with moderate ascites. Followup liver ultrasound resulted on 03/27/2020: common bile duct dilatation of 1.2 cm, 2 simple cysts exophytic from the right liver lobe, coarse liver texture consistent with some degree of cirrhosis, no gallbladder stones or polyps, however, slight thickening of the gallbladder wall was present. Patient began to experience chills and his temperature began to rise at which IV ceftriaxone was started on 03/27/2020 (admission day) as spontaneous bacterial peritonitis prophylaxis. Spironolactone 25 mg daily was also added. Patient's temperature continued to rise and reached 100.1 on 03/29/2020. Abdominal paracentesis was done on 03/28/2020 for which one Warfarin dose was held, along with spironolactone, atorvastatin, carvedilol, ceftriaxone, lisinopril and metoprolol. (These were resumed after the paracentesis.) During paracentesis, patient was administered if 50 mL of 25% albumin. Paracentesis resulted in: 3.15 L of yellow ascitic fluid was drawn. 1.3 L was sent for ascitic fluid analysis. Ascitic fluid showed leukocytosis with 218 white blood cells, <2 red blood cells were present, SAAG was 1.1, and therefore inconclusive as to whether ascites was due to portal hypertension. This was assessed to be portal hypertension due to patient's presentation. MRCP on 03/28/2020, after the paracentesis, was inconclusive due to remaining ascitic fluid. Since patient complained of bilateral calf pain on 03/28/2020. A vascular ultrasound was ordered and resulted as no evidence for deep venous thrombosis. Laboratory values for magnesium showed hypomagnesemia at the level of 1.5, at which point he received 2 doses of 400 mg, magnesium oxide. 1 g IV magnesium sulfate was administered. Repeat magnesium level on 03/29/2020 was 1.9. On 03/29/2020, patient's sodium level was 130. He continues to receive Furosemide 40 mg twice a day. Spirinoactone dose was changed from 25 mg to 12.5 mg daily on 03/29/2020. DISCHARGE MEDICATIONS: Please see below. ALLERGIES: Please see below. PHYSICAL EXAMINATION ON DISCHARGE: VITAL SIGNS: Please see below. GENERAL: appears in no acute distress, alert and oriented x 3, cooperative HEENT: lids normal, scleral icterus present CARDIOVASCULAR EXAMINATION: borderline tachycardia, normal S1, S2, systolic ejection murmur 2/6 RESPIRATORY EXAMINATION: CTAB, no rales, rhonchi, wheezing ABDOMINAL EXAMINATION: soft, nml bowel sounds, tenderness, HSM present EXTREMITIES: +2 pitting edema bilateral lower extremities: feet and legs up to knees SKIN: no lesions present, midline abdominal scar present from prior laparatomy, small scar on right lateral side from prior DAGO tube. PSYCHIATRIC EXAMINATION: affect full and open, pt is cooperative, A&Ox3 LABORATORY DATA: Please see below. IMAGING: Scrotum ultrasound (03/27/2020): No evidence of testicular torsion bilaterally. Marked scrotal wall edema. Trace right and small left hydroceles. Abdominal/pelvis CT (03/27/2020): Hepatomegaly and liver contour nodularities with moderate ascites, exophytic cystic lesion in the right hepatic lobe, scattered colonic diverticula noted, no evidence of acute diverticulitis. Liver ultrasound (03/27/2020): Mild ascites, 2 simple cysts exophytic in right liver lobe, coarse liver texture consistent with some degree of cirrhosis, mild CBD dilation 1.2 cm. Chest radiograph (03/27/2020): No acute cardiopulmonary process noted. Paracentesis ultrasound (03/28/2020): Ultrasound-guided paracentesis with removal of 3.15 L of yellow ascites. MRCP (03/28/2020): Extensive image artifact due to ascitic fluid. Vascular ultrasound of bilateral lower extremities (03/28/2020): No evidence of deep venous thrombosis. Echocardiogram. (03/25/2020): Ventricular ejection fraction: 10-20%, dilatation of left and right heart chambers with right ventricular free wall hypokinesis, normal-appearing aortic, mitral, and tricuspid valves. PROGNOSIS: Fair. ACTIVITY: As tolerated. DIET: sodium restriction, 2 g, fluid restriction, 2 L. DISPOSITION: Transfer to [facility] for AICD placement. ITEMS TO FOLLOWUP ON ON OUTPATIENT: #Maintain therapeutic INR levels for atrial fibrillation. #Start T2DM management. #Begin multidisciplinary involvement for micro- and macrovascular diabetic complications. DISCHARGE CONDITION: Stable. TIME SPENT ON DISCHARGE: Greater than 35 minutes. Vital Signs/I&Os Vital Signs Date Time Temp Pulse Resp B/P (MAP) Pulse Ox O2 Delivery O2 Flow Rate FiO2 03/29/20 13:13 100.1 98 18 111/80 (90) 99 Room Air I&O- Last 24 Hours up to 6 AM 03/29/20 06:00 Intake Total 1990.0 ml Output Total 1200 ml Balance 790.0 ml Laboratory Data Labs 24H Laboratory Tests 2 03/28/20 16:41: Bedside Glucose (Misc Panel) 155H 03/28/20 20:21: Bedside Glucose (Misc Panel) 153H 03/29/20 05:30: Immature Granulocyte % (Auto) 0.3, Neutrophils (%) (Auto) 61.1, Lymphocytes (%) (Auto) 20.9L, Monocytes (%) (Auto) 14.4H, Eosinophils (%) (Auto) 2.1, Basophils (%) (Auto) 1.2H, Neutrophils # (Auto) 4.1, Lymphocytes # (Auto) 1.4L, Monocytes # (Auto) 1.0H, Eosinophils # (Auto) 0.1, Basophils # (Auto) 0.1, Nucleated Red Blood Cells % (auto) 0.0, Prothrombin Time 18.0H, Prothromb Time International Ratio 1.45, Anion Gap 7L, Glomerular Filtration Rate > 60.0, Calcium Level 8.8, Magnesium Level 1.9, Total Bilirubin 3.0H, Direct Bilirubin 1.4H, Aspartate Amino Transf (AST/SGOT) 21, Alanine Aminotransferase (ALT/SGPT) 14, Alkaline Phosphatase 220H, Total Protein 7.0, Albumin 2.4L, Albumin/Globulin Ratio 0.5 03/29/20 11:26: Bedside Glucose (Misc Panel) 161H CBC/BMP Laboratory Tests 03/29/20 05:30 FSBS Laboratory Tests Test 03/28/20 16:41 03/28/20 20:21 03/29/20 11:26 Range/Units Bedside Glucose (Misc Panel) 155 153 161 70-105 MG/DL Microbiology Microbiology 03/28/20 Gram Stain - Final, Resulted 03/28/20 Body Fluid Culture, Resulted Pending 03/27/20 Blood Culture - Preliminary, Resulted No growth after 24 hours . All specim... 03/27/20 Blood Culture - Preliminary, Resulted No growth after 24 hours . All specim... 03/27/20 Blood Culture - Preliminary, Resulted No Growth after 48 hours. All Specime... 03/27/20 Blood Culture - Preliminary, Resulted No Growth after 48 hours. All Specime... Discharge Medications Scheduled Atorvastatin Calcium (Atorvastatin Calcium) 40 Mg Tablet, 40 MG PO QHS, (Reported) Bumetanide (Bumetanide) 1 Mg Tablet, 1 MG PO TID, (Reported) Carvedilol (Carvedilol) 3.125 Mg Tablet, 3.125 MG PO BID, (Reported) Ceftriaxone in Is-Osm Dextrose (Ceftriaxone 1 gm-D5w Bag) 1 Gm/50 Ml Piggyback, 1 INJ IV DAILY Furosemide (Furosemide) 10 Mg/1 Ml Vial, 40 MG IV BID@, Gabapentin (Gabapentin) 300 Mg Capsule, 300 MG PO TID, (Reported) Lisinopril (Lisinopril) 5 Mg Tablet, 5 MG PO DAILY, (Reported) Magnesium Oxide (Magnesium Oxide) 400 Mg Tablet, 400 MG PO QHS, (Reported) Metoprolol Succinate (Metoprolol Succinate) 25 Mg Tab.er.24h, 25 MG PO DAILY, (Reported) Pantoprazole Sodium (Pantoprazole Sodium) 40 Mg Tablet.dr, 40 MG PO DAILY, (Reported) Spironolactone (Aldactone) 25 Mg Tablet, 12.5 MG PO QAM Warfarin Sodium (Warfarin Sodium) 5 Mg Tablet, 5 MG PO QAM, (Reported) Allergies Coded Allergies: NSAIDS (Non-Steroidal Anti-Inflamma (Verified Allergy, Intermediate, SWELLING OF FACE, 03/17/20) GME ATTESTATION My faculty preceptor for this patient encounter was physically present during the encounter and was fully available. All aspects of the patient interview, examination, medical decision making process, and medical care plan development were reviewed and approved by the faculty preceptor. The faculty preceptor is aware and concurs with the plan as stated in the body of this note and will attest to such by his/her cosignature. Milton Dillard DO Mar 29, 2020 15:17
[2020-03-29] MEDS: WARFARIN SOD 5MG TAB PO SCH (16:06)
[2020-03-29] MEDS ORDERED: CEFT1INJ4 IV (16:13)
[2020-03-29] MEDS ORDERED: FURO80VL IV (16:13)
== END 2020-03-29 18:18 | disposition short-term general hospital (02) ==
LOC: M ED 23:54 → M ED INP 03-27 08:52 → M MSPAV 03-27 12:39
PROVIDERS: ADMIT Family Medicine; ATTEND Family Medicine
PROC: 0W9G3ZZ Drainage of Peritoneal Cavity, Percutaneous Approach (ICD-10-PCS; principal; 2020-03-28 14:30)
DX: K74.60 Unspecified cirrhosis of liver (principal); K65.2 Spontaneous bacterial peritonitis; I42.0 Dilated cardiomyopathy; I50.32 Chronic diastolic (congestive) heart failure; R18.8 Other ascites; K72.90 Hepatic failure, unspecified without coma; E11.21 Type 2 diabetes mellitus with diabetic nephropathy; E11.40 Type 2 diabetes mellitus with diabetic neuropathy, unspecified; I48.91 Unspecified atrial fibrillation; E83.42 Hypomagnesemia; E11.65 Type 2 diabetes mellitus with hyperglycemia; I47.1 Supraventricular tachycardia; Z87.11 Personal history of peptic ulcer disease; Z87.891 Personal history of nicotine dependence; Z79.01 Long term (current) use of anticoagulants; Z88.6 Allergy status to analgesic agent; Z79.899 Other long term (current) drug therapy

== ENCOUNTER → 2020-04-13 | Outpatient (CLI) | payer BC ==
[~2020-04-13] MED LIST changes: +ALDA25TA2 PO; +CEFT1INJ4 IV; +FURO80VL IV
[2020-04-13 13:01] LABS: HEMATOCRIT 34.9 % (42.0-52.0); HEMOGLOBIN 10.3 g/dl (13.5-17.5); MEAN CORPUSCULAR HEMOGLOBIN 22.8 pg (27.0-33.0); MEAN CORPUSCULAR HGB CONC 29.5 g/dl (32.0-36.5); MEAN CORPUSCULAR VOLUME 77.4 fl (80.0-96.0); PLATELET COUNT, AUTOMATED 384 10^3/uL (150-450); RED BLOOD COUNT 4.51 10^6/uL (4.30-6.10); WHITE BLOOD COUNT 6.8 10^3/uL (4.0-10.0)
[2020-04-13 13:36] LABS: BLOOD UREA NITROGEN 18 MG/DL (7-18); CALCIUM LEVEL 8.8 MG/DL (8.5-10.1); CARBON DIOXIDE LEVEL 30 MEQ/L (21-32); CHLORIDE LEVEL 98 MEQ/L (98-107); CREATININE FOR GFR 1.01 MG/DL (0.70-1.30); GLOMERULAR FILTRATION RATE > 60.0 (>60); GLUCOSE, FASTING 186 MG/DL (70-100); NT-PRO BNP 6009 PG/ML (<125); POTASSIUM SERUM 3.5 MEQ/L (3.5-5.1); SODIUM LEVEL 134 MEQ/L (136-145)
== END ==
LOC: M LAB 12:24
PROVIDERS: ATTEND Internal Medicine Cardiovascular Disease
DX: I50.21 Acute systolic (congestive) heart failure (principal)

== ENCOUNTER → 2020-04-23 | Outpatient (CLI) | payer BC, OTHER ==
[~2020-04-23] MED LIST changes: +SODIUM BICARBONATE 8.4% INJ 50MEQ 50 ML VIAL As Ordered ONE
[2020-04-23 08:51] LABS: BASO # 0.1 10^3/uL (0.0-0.2); BASO % 0.9 % (0.0-1.0); EOS # 0.1 10^3/uL (0.0-0.5); EOS % 1.8 % (0.0-3.0); HEMATOCRIT 33.4 % (42.0-52.0); HEMOGLOBIN 10.1 g/dl (13.5-17.5); LYMPH # 0.9 10^3/uL (1.5-5.0); LYMPH % 14.1 % (24.0-44.0); MEAN CORPUSCULAR HEMOGLOBIN 23.2 pg (27.0-33.0); MEAN CORPUSCULAR HGB CONC 30.2 g/dl (32.0-36.5); MEAN CORPUSCULAR VOLUME 76.6 fl (80.0-96.0); MONO # 0.8 10^3/uL (0.0-0.8); MONO % 12.5 % (2.0-8.0); NEUTROPHILS # 4.7 10^3/uL (1.5-8.5); NEUTROPHILS % 70.4 % (36.0-66.0); PLATELET COUNT, AUTOMATED 430 10^3/uL (150-450); RED BLOOD COUNT 4.36 10^6/uL (4.30-6.10); WHITE BLOOD COUNT 6.7 10^3/uL (4.0-10.0)
[2020-04-23 09:16] LABS: ALBUMIN 2.6 GM/DL (3.2-5.2); ALT/SGPT 18 U/L (12-78); BILIRUBIN,TOTAL 1.8 MG/DL (0.2-1.0); BLOOD UREA NITROGEN 21 MG/DL (7-18); CALCIUM LEVEL 8.5 MG/DL (8.5-10.1); CARBON DIOXIDE LEVEL 30 MEQ/L (21-32); CHLORIDE LEVEL 97 MEQ/L (98-107); CREATININE FOR GFR 1.01 MG/DL (0.70-1.30); GLOMERULAR FILTRATION RATE > 60.0 (>60); GLUCOSE, FASTING 174 MG/DL (70-100); POTASSIUM SERUM 4.7 MEQ/L (3.5-5.1); SODIUM LEVEL 132 MEQ/L (136-145); TOTAL PROTEIN 7.6 GM/DL (6.4-8.2)
== END ==
LOC: M IRPRO 08:18
PROVIDERS: ATTEND Family Medicine
DX: K74.60 Unspecified cirrhosis of liver (principal)

== ENCOUNTER → 2020-05-01 | Outpatient (CLI) | payer BC ==
[~2020-05-01] MED LIST changes: -SODIUM BICARBONATE 8.4% INJ 50MEQ 50 ML VIAL As Ordered ONE
[2020-05-01 10:39] LABS: BASO # 0.1 10^3/uL (0.0-0.2); EOS # 0.3 10^3/uL (0.0-0.5); EOS % 4.6 % (0.0-3.0); HEMATOCRIT 33.5 % (42.0-52.0); HEMOGLOBIN 9.9 g/dl (13.5-17.5); LYMPH # 0.9 10^3/uL (1.5-5.0); LYMPH % 14.9 % (24.0-44.0); MEAN CORPUSCULAR HGB CONC 29.6 g/dl (32.0-36.5); MEAN CORPUSCULAR VOLUME 77.9 fl (80.0-96.0); MONO % 15.4 % (2.0-8.0); NEUTROPHILS % 63.6 % (36.0-66.0); PLATELET COUNT, AUTOMATED 411 10^3/uL (150-450); WHITE BLOOD COUNT 6.3 10^3/uL (4.0-10.0)
[2020-05-01 10:43] LABS: INR 1.34; PROTHROMBIN TIME 16.9 SECONDS (12.5-14.3)
[2020-05-01 10:56] LABS: ALBUMIN 2.6 GM/DL (3.2-5.2); ALT/SGPT 11 U/L (12-78); BILIRUBIN,TOTAL 1.7 MG/DL (0.2-1.0); BLOOD UREA NITROGEN 28 MG/DL (7-18); CALCIUM LEVEL 8.8 MG/DL (8.5-10.1); CARBON DIOXIDE LEVEL 32 MEQ/L (21-32); CHLORIDE LEVEL 96 MEQ/L (98-107); CREATININE FOR GFR 1.09 MG/DL (0.70-1.30); GLOMERULAR FILTRATION RATE > 60.0 (>60); GLUCOSE, FASTING 209 MG/DL (70-100); POTASSIUM SERUM 4.5 MEQ/L (3.5-5.1); SODIUM LEVEL 133 MEQ/L (136-145); TOTAL PROTEIN 7.8 GM/DL (6.4-8.2)
[2020-05-01 12:15] VITALS: BP 120/72
[2020-05-01 13:09] LABS: LDH, BODY FLUID 125 U/L (NOT ESTABLISHED); SOURCE, BODY FLUID ALBUMIN ASCITES; SOURCE, BODY FLUID GLUCOSE ASCITES; SOURCE, BODY FLUID LDH ASCITES
--- NOTE | 2020-05-01 18:14 | REP ---
INDICATION: ASCITES. COMPARISON: None. TECHNIQUE: The procedure was performed under the direct supervision of Dr. Ramirez. The risks and benefits of the procedure were explained to the patient and informed consent was obtained. The procedure was performed by Dr. Mathur under my personal guidance. The largest pocket of fluid was localized in the left flank using ultrasound guidance. The skin was prepped and draped in a sterile fashion. 1% lidocaine was used as a local anesthetic. An 8-Telugu multi side-hole catheter was inserted using trocar technique.[id number] cc of odilia colored fluid was withdrawn with a sample sent to the lab for analysis. The patient tolerated the procedure well and there were no immediate complications. After the appropriate amount of monitored convalescence, the patient was discharged from the department. FINDINGS: None IMPRESSION: Ultrasound-guided paracentesis [id number] cc of odilia colored fluid. <Electronically signed by Lauro Foy > 05/01/20 [id number] <Electronically signed by Chepe Ramirez > 05/01/20 [id number]
== END ==
LOC: M IRPRO 09:25
PROVIDERS: ATTEND Family Medicine
DX: R18.8 Other ascites (principal)

== ENCOUNTER → 2020-06-21 | Outpatient (CLI) | payer BC, OTHER ==
--- NOTE | 2020-06-21 13:12 | REP ---
INDICATION: PAIN IN LEFT SHOULDER COMPARISON: None TECHNIQUE: Internal rotation, external rotation, and Y view. FINDINGS: Very minimal cortical irregularity along the lateral aspect of the acromion. The acromioclavicular and glenohumeral joints are intact and normal. No acute fracture or dislocation. No periarticular calcifications or degenerative changes are appreciated. Sub acromial space is normal. Surrounding soft tissues are unremarkable. IMPRESSION: Essentially age-appropriate examination. <Electronically signed by Nir Spencer > 06/21/20 [id number]
== END ==
LOC: M RAD 12:17
PROVIDERS: ATTEND Family Medicine
DX: M25.512 Pain in left shoulder (principal)

== ENCOUNTER → 2020-12-14 | Outpatient (CLI) | payer BC ==
[~2020-12-14] MED LIST changes: -MAGN400T3 PO; +MAGN400T33 PO
[2020-12-14 12:33] LABS: BASO # 0.1 10^3/uL (0.0-0.2); EOS # 0.8 10^3/uL (0.0-0.5); EOS % 9.8 % (0.0-3.0); HEMATOCRIT 37.2 % (42.0-52.0); HEMOGLOBIN 12.7 g/dl (13.5-17.5); LYMPH # 1.7 10^3/uL (1.5-5.0); LYMPH % 21.8 % (24.0-44.0); MEAN CORPUSCULAR HEMOGLOBIN 28.9 pg (27.0-33.0); MEAN CORPUSCULAR HGB CONC 34.1 g/dl (32.0-36.5); MEAN CORPUSCULAR VOLUME 84.7 fl (80.0-96.0); MONO # 0.7 10^3/uL (0.0-0.8); MONO % 9.2 % (2.0-8.0); NEUTROPHILS # 4.4 10^3/uL (1.5-8.5); NEUTROPHILS % 58.1 % (36.0-66.0); PLATELET COUNT, AUTOMATED 299 10^3/uL (150-450); RED BLOOD COUNT 4.39 10^6/uL (4.30-6.10); WHITE BLOOD COUNT 7.6 10^3/uL (4.0-10.0)
[2020-12-14 12:43] LABS: INR 2.72; PROTHROMBIN TIME 29.2 SECONDS (12.7-14.5)
[2020-12-14 13:20] LABS: BILIRUBIN,TOTAL 0.7 MG/DL (0.2-1.0); CALCIUM LEVEL 9.6 MG/DL (8.5-10.1); CREATININE FOR GFR 1.85 MG/DL (0.70-1.30); GLOMERULAR FILTRATION RATE 42.5 (>60); POTASSIUM SERUM 4.6 MEQ/L (3.5-5.1); TOTAL PROTEIN 8.5 GM/DL (6.4-8.2)
[2020-12-14 13:32] LABS: HEMOGLOBIN A1c 11.5 %
== END ==
LOC: M LAB 11:34
PROVIDERS: ATTEND Family Medicine
DX: E11.9 Type 2 diabetes mellitus without complications (principal); K74.60 Unspecified cirrhosis of liver; I48.91 Unspecified atrial fibrillation